=== PATIENT | female | born 1950 | race Hispanic/Latino ===

== ENCOUNTER 2018-01-13 18:14 | Emergency (ER) | payer OTHER ==
[~2018-01-13] VITALS: Ht 165.1 cm; Wt 92.5 kg
[2018-01-13] MEDS ORDERED: ACTOS45 MG PO (19:20)
[2018-01-13] MEDS ORDERED: GLIMEPIRIDE2 MG PO (19:24)
[2018-01-13] MEDS ORDERED: DYAZIDE 37.5-21 EACH (19:24)
[2018-01-13] MEDS ORDERED: LEVOTHYROXINE112 MCG PO (19:24)
[2018-01-13] MEDS ORDERED: LABETALOL HCL200 MG PO (19:28)
[2018-01-13] MEDS ORDERED: CLONIDINE HCL0.2 MG (19:28)
[2018-01-13] MEDS ORDERED: PRAVASTATIN SOD40 MG (19:28)
[2018-01-13] MEDS ORDERED: LISINOPRIL10 MG PO (19:28)
[2018-01-13] MEDS ORDERED: CLONIDINE HCL 0.1 MG TAB PO ONE (19:45)
[2018-01-13] MEDS ORDERED: KETOROLAC TROMETHAMINE 30 MG/ML VIAL IM STA (20:37)
[2018-01-13] MEDS ORDERED: CLONIDINE HCL0.1 MG PO (21:49)
[2018-01-13] MEDS ORDERED: TYLENOL WITH C1 EACH PO (21:49)
[2018-01-13 22:53] VITALS: BP 126/90
== END 2018-01-13 22:05 | disposition home or self-care (01) ==
LOC: FSED 18:14
DX: G44.219 Episodic tension-type headache, not intractable (principal); I10 Essential (primary) hypertension
CPT/HCPCS: 80053; 81003; 85025; 99283; J1885

== ENCOUNTER 2018-12-08 16:58 | Inpatient (IN) | payer OTHER ==
[~2018-12-08] VITALS: Ht 165.1 cm; Wt 90.0 kg
[~2018-12-08 16:58] MED LIST: ACTOS45 MG PO; CLONIDINE HCL0.1 MG PO; CLONIDINE HCL0.2 MG; DYAZIDE 37.5-21 EACH; GLIMEPIRIDE2 MG PO; LABETALOL HCL200 MG PO; LEVOTHYROXINE112 MCG PO; LISINOPRIL10 MG PO; PRAVASTATIN SOD40 MG; TYLENOL WITH C1 EACH PO
--- OUTSIDE RECORDS SUMMARY | 2018-12-08 17:03 | XMS REPORT | Clinical Summary ---
Author Author YOSELIN [facility] Organization [facility] Address Unknown Phone Unavailable Care Team Providers Care Director Drug Name Role Phone Sharpless PCP Allergies No Known Allergies Medications End Date Status Medication Sig Dispensed Refills Start Date Active sucralfate (CARAFATE) 1 Take 1 g by 0 gram tablet mouth 4 (four) times daily. Active pravastatin (PRAVACHOL) Take 40 mg by 0 40 MG tablet mouth daily. Active omeprazole (PRILOSEC) 40 Take 40 mg by 0 MG capsule mouth 2 (two) times daily . Active aspirin 81 MG EC tablet Take 81 mg by 0 mouth daily. Active metFORMIN (GLUCOPHAGE) Take 850 mg 0 850 MG tablet by mouth 2 (two) times daily with breakfast and dinner. Active verapamil (CALAN-SR) 240 Take 240 mg 0 MG CR tablet by mouth 2 (two) times daily . Active valsartan-hydrochlorothia Take 1 tablet 0 zide (DIOVAN-HCT) 320-25 by mouth mg per tablet daily. Active levothyroxine (SYNTHROID, Take 112 mcg 0 LEVOTHROID) 112 MCG by mouth tablet Every morning on an empty stomach. Active glimepiride (AMARYL) 4 MG Take 4 mg by 0 tablet mouth every morning before breakfast. Active pioglitazone (ACTOS) 45 Take 45 mg by 0 MG tablet mouth daily. Active Al hyd-Mg tr-alg ac-sod Take 1 tablet 0 bicarb (GENATON 80-20) by mouth 3 80-20 mg chewable tablet (three) times daily as needed for Heartburn. Active sdhogwrd-bzgj-fgw-folic Take 1 tablet 0 acid by mouth (LFKYDXBYJKYU-YJAI-WQSOZS daily . LS-FOLIC ACID) 3,500-18-0.4 unit-mg-mg Chew Active Problems Problem Noted Date Vertigo 05/13/2016 Family History Medical History Relation Name Comments Cancer Father Diabetes Mother Hyperlipidemia Mother Hypertension Mother Relation Name Status Comments Father Mother Social History Date Tobacco Use Types Packs/Day Years Used Never Smoker Alcohol Use Drinks/Week oz/Week Comments No Sex Assigned at Date Recorded Not on file Industry Job Start Date Occupation Not on file Not on file Not on file Travel End Travel History Travel Start No recent travel history available. Last Filed Vital Signs Not on file Plan of Treatment Not on file Results Not on fileafter 12/07/2017 Insurance Payer Benefit Subscriber ID Type Phone Address Plan / Group [employer] [facility] [facility]
[2018-12-08 18:42] LABS: BASOPHILS % 0.2 % (0.0-1.0); HEMATOCRIT 27.3 % (34.2-44.1); HEMOGLOBIN 9.3 g/dL (12.0-16.0); LYMPHOCYTES # (AUTO) 0.8 (1.0-3.2); LYMPHOCYTES % 4.5 % (18.0-39.1); MEAN CORPUSCULAR HEMOGLOBIN 27.2 pg (28-32); MEAN CORPUSCULAR HGB CONC 34.1 g/dL (31-35); MEAN CORPUSCULAR VOLUME 79.8 fL (81-99); MONOCYTES # (AUTO) 0.9 (0.2-0.8); NEUTROPHILS # (AUTO) 15.3 (2.1-6.9); NEUTROPHILS % 89.7 % (38.7-80.0); PLATELET COUNT 275 x10e3/uL (140-360); RED BLOOD COUNT 3.42 x10e6/uL (3.6-5.1); RED CELL DISTRIBUTION WIDTH 17.7 % (11.7-14.4)
[2018-12-08 18:51] LABS: INR 1.03
[2018-12-08 18:52] LABS: PARTIAL THROMBOPLASTIN TIME 36.6 seconds (23.8-35.5)
[2018-12-08] MEDS ORDERED: OMEPRAZOLE40 MG PO (18:52)
[2018-12-08] MEDS ORDERED: FLECTOR1 EACH PO (18:52)
[2018-12-08] MEDS ORDERED: LEVOTHYROXINE112 MCG PO (18:52)
[2018-12-08] MEDS ORDERED: SYMBICORT 80-10.2 GM INH (18:52)
[2018-12-08] MEDS ORDERED: METFORMIN HCL850 MG PO (18:52)
[2018-12-08] MEDS ORDERED: HYDROCHLOROTH12.5 M1 PO (18:52)
[2018-12-08] MEDS ORDERED: ASPIR 8181 MG PO (18:52)
[2018-12-08] MEDS ORDERED: LOSARTAN POTAS100 MG PO (18:52)
[2018-12-08] MEDS ORDERED: PRAVASTATIN SOD40 MG PO (18:52)
[2018-12-08] MEDS ORDERED: CORICIDIN COLD1 EACH (18:52)
[2018-12-08] MEDS ORDERED: MAGNESIUM OXID400 MG PO (18:52)
[2018-12-08] MEDS ORDERED: FERROUS SULFAT325 M1 PO (18:52)
[2018-12-08] MEDS ORDERED: VITAMIN B12-FO1 EACH PO (18:52)
[2018-12-08] MEDS ORDERED: PRESERVISION T1 EACH PO (18:52)
[2018-12-08] MEDS ORDERED: NIFEDIPINE ER30 M1 PO (18:52)
[2018-12-08] MEDS ORDERED: SODIUM CHLORIDE 0.9% 1000ML 1,000 ML IV STA (19:08)
[2018-12-08] MEDS ORDERED: AZITHROMYCIN 500MG/NS 250 ML 250 ML IV ONE (19:15)
[2018-12-08] MEDS ORDERED: VANCOMYCIN HCL 1GM/NS 250 ML BAG IV SCH (19:15)
[2018-12-08] MEDS ORDERED: LEVOFLOXACIN 750MG/D5W 150ML IV SCH (19:15)
[2018-12-08] MEDS ORDERED: ACETAMINOPHEN 325 MG TAB PO ONE (19:15)
[2018-12-08 19:23] LABS: ALBUMIN 3.5 g/dL (3.5-5.0); ALBUMIN/GLOBULIN RATIO 0.8 (0.8-2.0); ANION GAP 17.6 mmol/L (8-16); CALCIUM 9.5 mg/dL (8.4-10.2); CREATININE, SERUM 1.14 mg/dL (0.57-1.11); POTASSIUM 3.6 mmol/L (3.5-5.1)
[2018-12-08 19:31] LABS: CREATINE KINASE MB 2.6 ng/mL (0-5.0)
[2018-12-08] MEDS ORDERED: AZITHROMYCIN250 MG PO (19:35)
--- NOTE | 2018-12-08 19:36 | Diagnostic Imaging Report ---
EXAMINATION: CHEST SINGLE (PORTABLE) INDICATION: Cough. COMPARISON: None FINDINGS: TUBES and LINES: None. LUNGS: There is mild prominence of the central pulmonary vasculature, consistent with pulmonary venous congestion. Bilateral central pulmonary edema is also observed. PLEURA: No pleural effusion or pneumothorax. HEART AND MEDIASTINUM: Cardiac size is moderately enlarged. BONES AND SOFT TISSUES: No acute osseous lesion. Soft tissues are unremarkable. UPPER ABDOMEN: No free air under the diaphragm. IMPRESSION: Bilateral central pulmonary edema. Signed by: Dr. Gertrude Ahumada M.D. on 12/08/2018 7:33 PM
[2018-12-08] MEDS ORDERED: VANCOMYCIN 1GM/NS 250 ML 250 ML IV SCH (19:45)
[2018-12-08] MEDS: CEFTRIAXONE SOD 1 GM/NS 50 ML 50 ML IV ONE ×2 (19:45→19:51)
[2018-12-08] MEDS ORDERED: LEVOFLOXACIN 750MG/D5W 150ML 150 ML IV SCH (19:45)
[2018-12-08] MEDS: CEFEPIME 2 GM/NS 0.9% 100 ML 100 ML IV SCH (19:54)
--- OUTSIDE RECORDS SUMMARY | 2018-12-08 20:35 | XMS REPORT ---
[facility] Address Unknown Phone Unavailable Care Team Providers Care Presentation Designer Name Role Phone ZO JUAREZ Unavailable Unavailable Problems This patient has no known problems. Allergies, Adverse Reactions, Alerts This patient has no known allergies or adverse reactions. Medications This patient has no known medications. Results Test Description Test Time Test Comments Text Results Atomic Results Result Comments CHEST SINGLE (PORTABLE) 2018-12-08 19:32:00 [place] [address] Patient Name: PHI CORONADO MR #: [id number] : 1950 Age/Sex: 68/F Req #: [id number] Adm Physician: Ordered by: ZO JUAREZ MD, MD Report #: [id number] Location: ER Room/Bed: Procedure: [id number] DX/CHEST SINGLE (PORTABLE) Exam Date: 12/08/18 Exam Time: 1900 REPORT STATUS: Signed EXAMINATION: CHEST SINGLE (PORTABLE) IN DICATION: Cough. COMPARISON: None FINDINGS: TUBES and LINES: None. LUNGS: There is mild prominence of the central pulmonary vasculature, consistent with pulmonary venous congestion. Bilateral central pulmonary edema is also observed. PLEURA: No pleural effusion or pneumothorax. HEART AND MEDIASTINUM: Cardiac size is moderately enlarged. BONES AND SOFT TISSUES: No acute osseous lesion. Soft tissues are unremarkable. UPPER ABDOMEN: No free air under the diaphragm. IMPRESSION: Bilateral central pulmonary edema. Signed by: Dr. Gertrude Caldrea M.D. on 12/08/2018 7:33 PM Dictated By: KIARA CALDERA MD, MD 32 Transcribed By: WINDY on 12/08/181932 COPY TO: ZO JUAREZ
--- OUTSIDE RECORDS SUMMARY | 2018-12-08 20:35 | XMS REPORT | Clinical Summary ---
Author Author YOSELIN [facility] Organization [facility] Address Unknown Phone Unavailable Care Team Providers Care Commercial Sales Director Name Role Phone Sharpless PCP Allergies No [...] times daily as needed for Heartburn. Active ybgsvwql-awcs-hkb-folic Take 1 tablet 0 acid by mouth (SXVCKCQFXRMC-LGXO-OMBFPO daily . LS-FOLIC ACID) 3,500-18-0.4 unit-mg-mg Chew [...] Address Plan / Group [employer] [facility] [facility]
[2018-12-08] MEDS ORDERED: FUROSEMIDE INJ 10 MG/ML 4 ML VIAL IV ONE (21:45)
[2018-12-08] MEDS ORDERED: CEFEPIME HCL 2 GM/SOD CHL 0.9% 100 ML BAG IV SCH (22:00)
[2018-12-08] MEDS ORDERED: SODIUM CHLORIDE 0.9% 50ML 50 ML ONE ×2 (22:07→22:08)
[2018-12-08] MEDS ORDERED: IOPAMIDOL 370 MG/ML 200 ML INFUS..BTL INJ ONE (22:08)
[2018-12-08] MEDS ORDERED: SODIUM CHLORIDE 0.9% 250ML 250 ML ONE (22:16)
[2018-12-08 22:28] LABS: BILIRUBIN,URINE NEGATIVE (NEGATIVE); CLARITY,URINE CLEAR (CLEAR); COLOR,URINE YELLOW (YELLOW); KETONES,URINE NEGATIVE (NEGATIVE); LEUKOCYTE ESTERASE ,URINE NEGATIVE (NEGATIVE); NITRITE,URINE NEGATIVE (NEGATIVE); PROTEIN,URINE DIPSTICK NEGATIVE (NEGATIVE); URINE UROBILINOGEN 0.2 mg/dL (0.2 - 1)
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
[2018-12-08 22:43] VITALS: BP 165/79
[2018-12-08 22:45] LABS: BACTERIA,URINE MODERATE /HPF; EPITHELIAL CELLS,URINE FEW /LPF; WBC,URINE (MAN) 0-5 /HPF (0-5)
[2018-12-08 22:51] VITALS: BP 165/79
[2018-12-08 22:54] VITALS: BP 165/79
[2018-12-09] VITALS (7 sets, daily range): BP systolic 123–151; BP diastolic 58–66
[2018-12-09] MEDS: CEFEPIME 2 GM/NS 0.9% 100 ML 100 ML IV SCH (05:32)
[2018-12-09 06:12] LABS: CREATINE KINASE MB 1.9 ng/mL (0-5.0)
--- NOTE | 2018-12-09 07:45 | NUR ---
Patient alert and responsive, no resp distress, on continuous oxygen NC at 3 L, call light within reach, daughter in room with patient, treatment for PNA and will continue to monitor.
--- NOTE | 2018-12-09 09:26 | NUR ---
LS with faint scattered wheezing, desats without O2 on RA, will monitor.
--- NOTE | 2018-12-09 13:05 | NUR ---
Patient O2Sats 95% 3L and OOB and ambulated on RA and desatted to 84%. Attending notified and orders in place.
[2018-12-09] MEDS: LEVOTHYROXINE SODIUM 112 MCG TAB PO SCH (13:30)
[2018-12-09] MEDS: PIPER-TAZ 3.375 GM 50 ML IV SCH ×2 (13:37→21:09)
--- NOTE | 2018-12-09 13:40 | NUR ---
Rounds by attending and saw patient . Consult to pulmonology and has been called and waiting for call back.
[2018-12-09] MEDS ORDERED: AZITHROMYCIN 500MG/NS 250 ML 250 ML IV SCH (15:00)
[2018-12-09] MEDS: INSULIN LISPRO 100 UNIT/1 ML 3ML VIAL SQ SCH ×2 (16:30→20:59)
[2018-12-09] MEDS ORDERED: LINEZOLID 600 MG TAB PO SCH (17:00)
--- NOTE | 2018-12-09 17:14 | NUR ---
Patient alert and responsive, consult to carpenter general and seeing patient at this time. No resp distress, reason for consult is calcified arteries.
[2018-12-09] MEDS: LACTOBACILLUS ACIDOPHILUS CAPSULE PO SCH (17:17)
[2018-12-09] MEDS: CLONIDINE HCL 0.2 MG TAB PO SCH (17:17)
[2018-12-09] MEDS: METFORMIN HCL 850 MG TAB PO SCH (17:17)
--- NOTE | 2018-12-09 17:18 | Diagnostic Imaging Report ---
A single frontal view of the chest. HISTORY: Edema versus pneumonia, status post Lasix COMPARISON: Chest radiograph December 08, 2017. DISCUSSION: Portable technique, limits sensitivity of the exam. Overlying monitoring leads. Tubes/Lines: None Lungs and pleura: Diffuse bilateral patchy interstitial and airspace opacities, more confluence at the mid to lower lungs. No definite pleural effusion or pneumothorax is identified. Heart and mediastinum: The cardiac silhouette appears within normal limits. Bones and soft tissues: Appear unremarkable, given this limited exam. IMPRESSION: Patchy interstitial and airspace opacities in the setting of a normal cardiac size favors multifocal pneumonia. Signed by: Dr. Adal Mcghee D.O., M.M.M. on 12/09/2018 5:15 PM
[2018-12-09] MEDS ORDERED: FUROSEMIDE INJ 10 MG/ML 4 ML VIAL IV NR (17:45)
--- NOTE | 2018-12-09 18:50 | Consultation ---
DATE OF CONSULTATION: Pulmonary Critical Care Consultation CHIEF COMPLAINT: Cough, hemoptysis, and dyspnea. HISTORY OF PRESENT ILLNESS: The patient is a 68-year-old woman. She has a history of diabetes and hypertension. Over the past several weeks, she has had some cough and congestion. She took Zithromax about 3 or 4 weeks ago to her PCP and felt better temporarily, but began having more dyspnea the last couple of days. She noticed cough and hemoptysis that prompted her to go to the emergency department yesterday. Upon arrival to the Emergency Department, she had bilateral infiltrates suggestive of possible pneumonia. She received diuretics as well as antibiotics and reports some improvement. She is not having hemoptysis now. PAST MEDICAL HISTORY: 1. Hypothyroidism. 2. Hypertension. 3. Diabetes. PAST SURGICAL HISTORY: Tubal ligation. FAMILY HISTORY: Diabetes, hypertension, and heart disease. SOCIAL HISTORY: The patient has never been a smoker, although her and her son-in-law have smoked. They usually smoke outside the house. She is not a drinker. ALLERGIES: SHE HAS NO KNOWN DRUG ALLERGIES. REVIEW OF SYSTEMS: The patient did have fevers here, but is not experiencing any fever or chills at home. She does not complain of any headache or neck pain. She did have some dizziness. She had no chest pain. She did have some cough. She noted some congestion and some hemoptysis. She does not have any abdominal pain, nausea, vomiting. She had leg edema previously, but has since resolved. PHYSICAL EXAMINATION: VITAL SIGNS: The patient is afebrile. The blood pressure is 128/60 and saturation is 94% on room air, 4 L. HEENT: Shows no facial swelling or erythema. LYMPHATIC: Shows no submandibular, cervical, or supraclavicular adenopathy. CARDIAC: Reveals regular rate and rhythm with normal S1 and S2. LUNGS: Auscultation of lungs shows clear breath sounds bilaterally. There is no wheezing. ABDOMEN: Soft, nontender. There is no rebound or guarding. EXTREMITIES: Extremities show no leg edema or calf tenderness. There is no cyanosis or clubbing. SKIN: Shows no rashes. NEUROLOGIC: Shows no focal abnormalities. LABORATORY DATA: Sodium is 128 and the CO2 is 20. Creatinine is 1.14. White blood cell count is 17 and hemoglobin is 9.3. The platelet count is 275. RADIOGRAPHIC DATA: Chest CT shows bilateral ground-glass opacities concerning for multifocal pneumonia. There is also some mild cardiomegalia and calcified coronary arteries. ECHOCARDIOGRAM: The echocardiogram shows mildly reduced ejection fraction of 45% to 50%. There is also moderate mitral regurgitation as well as elevated right ventricular systolic pressure of 45. IMPRESSION: 1. Community-acquired pneumonia with sepsis, present on admission. 2. Acute systolic congestive heart failure. 3. Hemoptysis. 4. Hypothyroidism. 5. Hypertension. PLAN: 1. Continue current antibiotics. 2. Repeat chest x-ray tomorrow. 3. Continue oxygen and wean as tolerated. 4. Discuss additional Cardiology evaluation with Dr. Summers. 5. Out of bed as tolerated. 6. Discussed with the patient, family, and Dr. Summers. MD TAISHA Morocho/INDERJIT /[id number]
[2018-12-09] MEDS: PRAVASTATIN 20 MG TAB PO SCH (21:09)
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
[2018-12-10] VITALS (10 sets, daily range): BP systolic 112–142; BP diastolic 56–82
[2018-12-10 05:28] LABS: BASOPHILS % 0.4 % (0.0-1.0); EOSINOPHILS # (AUTO) 0.1 (0.0-0.4); EOSINOPHILS % 0.7 % (0.0-6.0); HEMATOCRIT 25.4 % (34.2-44.1); HEMOGLOBIN 8.5 g/dL (12.0-16.0); LYMPHOCYTES % 12.3 % (18.0-39.1); MEAN CORPUSCULAR HEMOGLOBIN 26.6 pg (28-32); MEAN CORPUSCULAR HGB CONC 33.5 g/dL (31-35); MEAN CORPUSCULAR VOLUME 79.6 fL (81-99); MONOCYTES # (AUTO) 0.7 (0.2-0.8); MONOCYTES % 8.5 % (4.4-11.3); NEUTROPHILS # (AUTO) 6.6 (2.1-6.9); NEUTROPHILS % 77.7 % (38.7-80.0); PLATELET COUNT 283 x10e3/uL (140-360); RED BLOOD COUNT 3.19 x10e6/uL (3.6-5.1); RED CELL DISTRIBUTION WIDTH 17.5 % (11.7-14.4)
[2018-12-10 05:50] LABS: ANION GAP 15.2 mmol/L (8-16); CALCIUM 9.2 mg/dL (8.4-10.2); CREATININE, SERUM 1.24 mg/dL (0.57-1.11); POTASSIUM 3.2 mmol/L (3.5-5.1)
[2018-12-10 05:55] LABS: ALBUMIN 2.9 g/dL (3.5-5.0); ALBUMIN/GLOBULIN RATIO 0.7 (0.8-2.0); ANION GAP 14.1 mmol/L (8-16); CALCIUM 9.2 mg/dL (8.4-10.2); CREATININE, SERUM 1.25 mg/dL (0.57-1.11); POTASSIUM 3.1 mmol/L (3.5-5.1)
[2018-12-10] MEDS: PIPER-TAZ 3.375 GM 50 ML IV SCH ×3 (05:58→22:50)
[2018-12-10] MEDS: LEVOTHYROXINE SODIUM 112 MCG TAB PO SCH (05:58)
[2018-12-10 06:11] LABS: THYROID STIMULATING HORMONE 1.036 uIU/mL (0.350-4.940)
--- NOTE | 2018-12-10 06:33 | Diagnostic Imaging Report ---
EXAMINATION: CHEST 2 VIEWS INDICATION: Pneumonia COMPARISON: Chest CT 12/08/2018 FINDINGS: PA and lateral views TUBES and LINES: None. LUNGS: Hazy airspace opacities in the mid to lower lungs bilaterally. PLEURA: No pleural effusion or pneumothorax. HEART AND MEDIASTINUM: Cardiac size is borderline enlarged. BONES AND SOFT TISSUES: No acute osseous lesion. Rotator cuff calcific tendinopathy bilaterally. UPPER ABDOMEN: No free air under the diaphragm. IMPRESSION: Hazy airspace opacities in the mid to lower lungs are likely pneumonia, less likely edema. Borderline cardiomegaly. Signed by: Jesús Slater DO on 12/10/2018 6:30 AM
[2018-12-10] MEDS: INSULIN LISPRO 100 UNIT/1 ML 3ML VIAL SQ SCH ×4 (07:58→21:00)
[2018-12-10] MEDS ORDERED: PIOGLITAZONE HCL 15 MG TAB PO SCH (08:00)
[2018-12-10] MEDS: METFORMIN HCL 850 MG TAB PO SCH (08:07)
[2018-12-10] MEDS: LACTOBACILLUS ACIDOPHILUS CAPSULE PO SCH ×2 (08:07→17:21)
[2018-12-10] MEDS: CLONIDINE HCL 0.2 MG TAB PO SCH ×2 (08:07→17:21)
[2018-12-10] MEDS ORDERED: PIOGLITAZONE HCL 45 MG TAB PO SCH (09:00)
--- NOTE | 2018-12-10 09:20 | NUR ---
RECEIVED PT FROM OBS. PT IS AAOX4. PT FAMILY AT BEDSIDE. BED IS AT THE LOWEST POSITION AND LOCKED. CALL LIGHT WITH IN EASY REACH. INSTRUCTED PT TO CALL FOR ANY NEEDS. PT DENIES NEEDS AT THIS TIME.
--- NOTE | 2018-12-10 11:44 | NUR ---
PT POTASSIUM LEVEL IS LOW. PAGED DR. AYALA. NEW ORDER RECEIVED.
[2018-12-10] MEDS ORDERED: POTASSIUM CHLORIDE 20 MEQ TAB CR PO ONE (12:00)
[2018-12-10] MEDS ORDERED: IRON SUCROSE 100 MG in SODIUM CHLORIDE 0.9% 100 ML 100 ML IV SCH ×2 (13:45→19:00)
[2018-12-10] MEDS ORDERED: LACTULOSE SYRUP 20 GM/30 ML UDC PO ONE (14:00)
[2018-12-10] MEDS ORDERED: SODIUM CHLORIDE 0.9% 250ML 250 ML ONE (14:09)
--- NOTE | 2018-12-10 16:04 | Progress Note ---
DATE: 12/10/2018 Pulmonary Progress Note SUBJECTIVE: The patient has no new complaints. She feels better. Her oxygen is down to 2 L. PHYSICAL EXAMINATION: VITAL SIGNS: The patient is afebrile. The blood pressure is 142/68 and the saturation is 94% on 2 L. HEENT: Shows no facial swelling or erythema. CARDIAC: Reveals a regular rate and rhythm with a normal S1 and S2. There are no murmurs or rubs. LUNGS: Auscultation of lungs reveals clear breath sounds bilaterally. There is no wheezing. IMPRESSION: 1. Community-acquired pneumonia with sepsis, present on admission. 2. Hypothyroidism. 3. Hypertension. PLAN: 1. Continue current antibiotics. 2. Continue to wean oxygen. 3. Probable discharge tomorrow. Aramis Rodrigez MD [facility]/MODL /[id number]
[2018-12-10] MEDS: METFORMIN HCL 500 MG TAB PO SCH (17:21)
--- NOTE | 2018-12-10 19:00 | NUR ---
BEDSIDE SHIFT REPORT GIVEN TO THE PLANNING MANAGEMENT IT SPECIALIST RN. PT FAMILY AT BEDSIDE. PT DENIED FURTHER NEEDS.
[2018-12-10] MEDS ORDERED: AZITHROMYCIN 500MG/NS 250 ML 250 ML IV SCH (20:00)
[2018-12-10] MEDS: PRAVASTATIN 20 MG TAB PO SCH (21:02)
[2018-12-11 01:55] VITALS: BP 121/59
[2018-12-11 05:47] VITALS: BP 133/66
[2018-12-11 05:48] LABS: BASOPHILS % 0.7 % (0.0-1.0); EOSINOPHILS # (AUTO) 0.4 (0.0-0.4); EOSINOPHILS % 6.2 % (0.0-6.0); HEMATOCRIT 25.6 % (34.2-44.1); HEMOGLOBIN 8.4 g/dL (12.0-16.0); LYMPHOCYTES # (AUTO) 1.2 (1.0-3.2); LYMPHOCYTES % 19.7 % (18.0-39.1); MEAN CORPUSCULAR HEMOGLOBIN 26.8 pg (28-32); MEAN CORPUSCULAR HGB CONC 32.8 g/dL (31-35); MEAN CORPUSCULAR VOLUME 81.5 fL (81-99); MONOCYTES # (AUTO) 0.7 (0.2-0.8); MONOCYTES % 12.5 % (4.4-11.3); NEUTROPHILS # (AUTO) 3.6 (2.1-6.9); NEUTROPHILS % 60.2 % (38.7-80.0); PLATELET COUNT 280 x10e3/uL (140-360); RED BLOOD COUNT 3.14 x10e6/uL (3.6-5.1); RED CELL DISTRIBUTION WIDTH 17.8 % (11.7-14.4)
[2018-12-11 06:26] LABS: ALBUMIN 2.7 g/dL (3.5-5.0); ALBUMIN/GLOBULIN RATIO 0.7 (0.8-2.0); ANION GAP 13.9 mmol/L (8-16); CALCIUM 8.8 mg/dL (8.4-10.2); CREATININE, SERUM 1.12 mg/dL (0.57-1.11); POTASSIUM 3.9 mmol/L (3.5-5.1)
[2018-12-11] MEDS: PIPER-TAZ 3.375 GM 50 ML IV SCH (06:40)
[2018-12-11] MEDS: LEVOTHYROXINE SODIUM 112 MCG TAB PO SCH (06:41)
[2018-12-11 07:26] VITALS: BP 142/67
[2018-12-11] MEDS: INSULIN LISPRO 100 UNIT/1 ML 3ML VIAL SQ SCH ×2 (07:30→12:15)
[2018-12-11] MEDS ORDERED: PIOGLITAZONE HCL 15 MG TAB PO SCH (08:00)
[2018-12-11] MEDS: LACTOBACILLUS ACIDOPHILUS CAPSULE PO SCH (09:01)
[2018-12-11] MEDS: METFORMIN HCL 500 MG TAB PO SCH (09:01)
[2018-12-11] MEDS: CLONIDINE HCL 0.2 MG TAB PO SCH (09:01)
[2018-12-11 09:04] VITALS: BP 142/67
--- NOTE | 2018-12-11 10:08 | Progress Note ---
DATE: SUBJECTIVE: The patient states she is improving. She is now off oxygen. PHYSICAL EXAMINATION: VITAL SIGNS: Stable. CARDIAC: Reveals regular rate and rhythm with normal S1 and S2. There are no murmurs or rubs. LUNGS: Auscultation of lungs reveals clear breath sounds bilaterally. IMPRESSION: 1. Community-acquired pneumonia with sepsis, present on admission. 2. Hypothyroidism. 3. Hypertension. PLAN: 1. Change to p.o. antibiotics and complete a 10-day course. 2. Okay for discharge. 3. Follow up with Cardiology as outpatient. MD TAISHA Morocho/INDERJIT /[id number]
[2018-12-11 12:20] VITALS: BP 157/70
--- NOTE | 2018-12-11 13:00 | NUR ---
Per Dr. Summers, no home 02 eval is needed
--- NOTE | 2018-12-11 14:45 | NUR ---
Discharge instructions and prescription given to the patient , she verbalized understanding
--- NOTE | 2018-12-11 14:56 | NUR ---
CM SPOKE TO PATIENT AT BEDSIDE REGARDING DISCHARGE PLAN. PATIENT EXPLAINED THAT SHE DOES NOT QUALIFY FOR HOME OXYGEN BASED ON HOME OXYGEN EVALUATION. PATIENT UNDERSTANDS AND HAS NO MORE QUESTIONS AT THIS TIME. PATIENT DISCHARGING HOME WITH NO NEEDS.
--- NOTE | 2018-12-11 18:56 | Discharge Summary ---
PRIMARY CARE DOCTOR: Dr. Mandy Gates FINAL DIAGNOSIS: Bilateral multifocal pneumonia. SECONDARY DIAGNOSES: 1. Iron deficiency anemia. 2. Constipation, resolved. 3. Hyponatremia, resolved. 4. Diabetes. 5. Hypertension. CONSULTANTS: 1. Dr. Quiroga, Cardiology. 2. Dr. Rodrigez, Pulmonology. PROCEDURES/STUDIES PERFORMED: 1. Chest CT. 2. Echocardiogram. HISTORY: Per H and P. HOSPITAL COURSE: The patient was admitted with bilateral pneumonia. She responded to Zosyn and azithromycin well. Her hemoptysis and hypoxia resolved. Echocardiogram was benign. The patient received iron infusion for her iron deficiency anemia. She has a scheduled outpatient colonoscopy in the near future. The patient was seen and examined today. It took 32 minutes total to discharge this patient today. The patient will follow up with her primary care doctor in a week. Updated her daughter at the bedside. I updated her primary care doctor as well. CONDITION ON DISCHARGE: Improved. DISCHARGE MEDICATIONS: Please see medication reconciliation form including five more days of oral Levaquin to complete a one week course. Saraching MD LO Harris/INDERJIT /[id number] cc: [facility] Dr. Mandy Gates
== END 2018-12-11 14:49 | disposition home or self-care (01) | DRG 871 ==
LOC: ER 16:58 → ERHOLD 20:31 → IMCU 22:20 → INTOOBSV 12-09 13:02 → OBSVTOIN 12-09 13:02 → MED/SURG2 12-10 09:25
PROVIDERS: ADMIT Internal Medicine; ATTEND Internal Medicine
DX: A41.9 Sepsis, unspecified organism (principal); J18.9 Pneumonia, unspecified organism; I50.21 Acute systolic (congestive) heart failure; J80 Acute respiratory distress syndrome; E87.1 Hypo-osmolality and hyponatremia; D50.9 Iron deficiency anemia, unspecified; K59.00 Constipation, unspecified; I11.0 Hypertensive heart disease with heart failure; E03.9 Hypothyroidism, unspecified; E87.6 Hypokalemia; E11.65 Type 2 diabetes mellitus with hyperglycemia; E78.00 Pure hypercholesterolemia, unspecified; R60.0 Localized edema; I25.10 Atherosclerotic heart disease of native coronary artery without angina pectoris
CPT/HCPCS: 36415; 71045; 71046; 71260; 80048; 80053; 81001; 82550; 82553; 82948; 83540; 83880; 84443; 84466; 84484; 85025; 85379; 85610; 85730; 87040; 87070; 87205; 93005; 93306; 96374; 99284; G0378; J0456; J0696; J1756; J1940; J2543; J3370; J7030; J7050; Q9967

== ENCOUNTER 2019-01-23 18:21 | Inpatient (IN) | payer OTHER ==
[~2019-01-23] VITALS: Ht 157.5 cm; Wt 83.0 kg
[~2019-01-23 18:21] MED LIST changes: +ASPIR 8181 MG PO; +AZITHROMYCIN250 MG PO; +CORICIDIN COLD1 EACH; +ETOMIDATE 40 MG/ 20ML VIAL IV ONE; +FERROUS SULFAT325 M1 PO; +FLECTOR1 EACH PO; +HYDROCHLOROTH12.5 M1 PO; +LOSARTAN POTAS100 MG PO; +MAGNESIUM OXID400 MG PO; +METFORMIN HCL850 MG PO; +NIFEDIPINE ER30 M1 PO; +OMEPRAZOLE40 MG PO; +PRAVASTATIN SOD40 MG PO; +PRESERVISION T1 EACH PO; +SUCCINYLCHOLINE CHLORIDE 20 MG/ML 10ML VIAL ONE; +SYMBICORT 80-10.2 GM INH; +VITAMIN B12-FO1 EACH PO
--- OUTSIDE RECORDS SUMMARY | 2019-01-23 18:24 | XMS REPORT | Clinical Summary ---
Author Author YOSELIN [facility] Organization [facility] Address Unknown Phone Unavailable Care Team Providers Care Mission Planner Name Role Phone Sharpless PCP Allergies No [...] times daily as needed for Heartburn. Active tuxefvyq-jfua-zlp-folic Take 1 tablet 0 acid by mouth (DLCGWNZGKASQ-TYTR-BAHMYB daily . LS-FOLIC ACID) 3,500-18-0.4 unit-mg-mg Chew [...] Not on file Results Not on fileafter 01/22/2018 Insurance Payer Benefit Subscriber ID Type Phone Address Plan / Group [employer] [facility]
[2019-01-23 18:59] LABS: BASOPHILS % 0.2 % (0.0-1.0); EOSINOPHILS % 0.2 % (0.0-6.0); HEMATOCRIT 26.9 % (34.2-44.1); LYMPHOCYTES # (AUTO) 0.7 (1.0-3.2); LYMPHOCYTES % 5.4 % (18.0-39.1); MEAN CORPUSCULAR HEMOGLOBIN 27.3 pg (28-32); MEAN CORPUSCULAR HGB CONC 33.5 g/dL (31-35); MEAN CORPUSCULAR VOLUME 81.5 fL (81-99); MONOCYTES # (AUTO) 0.7 (0.2-0.8); MONOCYTES % 4.9 % (4.4-11.3); NEUTROPHILS # (AUTO) 11.7 (2.1-6.9); NEUTROPHILS % 88.8 % (38.7-80.0); PLATELET COUNT 215 x10e3/uL (140-360); RED CELL DISTRIBUTION WIDTH 20.5 % (11.7-14.4)
[2019-01-23 19:06] LABS: INR 1.18; PROTHROMBIN TIME 15.6 seconds (11.9-14.5)
[2019-01-23 19:07] LABS: PARTIAL THROMBOPLASTIN TIME 37.5 seconds (23.8-35.5)
[2019-01-23 19:15] LABS: ALBUMIN 3.3 g/dL (3.5-5.0); ALBUMIN/GLOBULIN RATIO 0.9 (0.8-2.0); ANION GAP 16.6 mmol/L (8-16); CALCIUM 9.3 mg/dL (8.4-10.2); CREATININE, SERUM 1.24 mg/dL (0.57-1.11); POTASSIUM 3.6 mmol/L (3.5-5.1)
[2019-01-23] MEDS ORDERED: PIPER-TAZ 3.375 GM 50 ML IV STA (19:21)
[2019-01-23] MEDS ORDERED: SODIUM CHLORIDE 0.9% 1000ML 1,000 ML IV SCH ×2 (19:30)
[2019-01-23] MEDS ORDERED: LEVOFLOXACIN 750MG/D5W 150ML 150 ML IV ONE (19:30)
[2019-01-23] MEDS ORDERED: SODIUM CHLORIDE 0.9% 1000ML 1,000 ML IV ONE (19:30)
[2019-01-23] MEDS ORDERED: ONDANSETRON HCL INJ 2MG/ML 2ML 2 MG/ML VIAL IV PRN (19:30)
[2019-01-23 19:39] LABS: ABG PH 7.42 (7.31-7.41)
[2019-01-23 19:40] LABS: ABG HCO3 17 mmol/L (23-28); ABG PCO2 27 mmHg (41-51); ABG PO2 59 mmHg (80-105)
[2019-01-23 19:46] LABS: CREATINE KINASE MB 2.1 ng/mL (0-5.0)
[2019-01-23] MEDS ORDERED: SODIUM CHLORIDE 0.9% 50ML 50 ML ONE (20:59)
[2019-01-23] MEDS ORDERED: INSULIN LISPRO 100 UNIT/1 ML 3ML VIAL SQ SCH (21:00)
[2019-01-23] MEDS ORDERED: IOPAMIDOL 370 MG/ML 200 ML INFUS..BTL INJ ONE (21:00)
--- NOTE | 2019-01-23 21:13 | Diagnostic Imaging Report ---
EXAMINATION: CT of the chest with contrast, PE protocol. TECHNIQUE: Spiral CT images of the chest were performed from the lung apices through the level of the adrenal glands after the IV administration of 100 cc Isovue-370. Thin section reconstructions were obtained with special concentration on the pulmonary arteries. COMPARISON: Chest radiograph 12/10/2018 CLINICAL HISTORY:Hypoxia, concern for pulmonary embolus DISCUSSION: Vasculature: The main pulmonary artery, right and left pulmonary arteries, and their visualized lobar and segmental branches are patent, without filling defect. The pulmonary outflow tract is of normal caliber. No right ventricular dilatation or septal bowing. No ectasia or aneurysmal dilatation of the thoracic aorta. Atherosclerotic calcification of the aortic arch and chilkoot coronary arteries. Great vessel origins are of normal caliber and configuration. Lungs: Multifocal central-predominant consolidations with air bronchograms predominantly involving the left upper lobe and bilateral lower lobes, with relative sparing of the lingula and right middle lobe. Multiple air bronchograms with surrounding groundglass opacities. Smooth interlobular septal thickening is noted in the areas not involved by consolidation, along with intermittent foci of relative hyperlucency of the lung parenchyma. Airways: Trachea, mainstem bronchi, and central lobar and segmental bronchi are patent. Pleura: Small bilateral pleural effusions. Heart and mediastinum: There is mild 4 chamber cardiac enlargement. No pericardial effusion. No axillary, hilar, or mediastinal lymphadenopathy. Abdomen: Visualized portions of the liver, spleen, pancreas, and adrenal glands appear normal with the exception of a calcified granuloma in hepatic segment 4A great Bones and soft tissues: No osseous destructive lesions. Multilevel degenerative changes of the partially visualized lower cervical and thoracic spine. Bilateral cervical ribs with right-sided fusion with the adjacent first thoracic rib. Degenerative changes of the shoulder girdles. Thyroid gland and soft tissues are unremarkable. IMPRESSION: No pulmonary embolus to the level of the segmental branch pulmonary arteries. Multifocal consolidations with adjacent groundglass opacities and smooth interlobular septal thickening most compatible with alveolar pulmonary edema in the setting of cardiomegaly and associated pleural effusions. The differential diagnosis includes multifocal pneumonia in the appropriate clinical setting. Follow-up CT scan of the chest should be considered in 3 months to document resolution of findings after appropriate treatment. Atherosclerotic vascular disease. Signed by: Dr. Carlos Rapp M.D. on 01/23/2019 9:10 PM
--- OUTSIDE RECORDS SUMMARY | 2019-01-23 21:52 | XMS REPORT | Clinical Summary ---
Author Author YOSELIN [facility] Organization [facility] Address Unknown Phone Unavailable Care Team Providers Care Storage Battery Inspector And Tester Name Role Phone Sharpless PCP Allergies No [...] times daily as needed for Heartburn. Active qkszvddi-hbtx-rfa-folic Take 1 tablet 0 acid by mouth (VWZSAUWTMKCC-RFHX-OWFTUR daily . LS-FOLIC ACID) 3,500-18-0.4 unit-mg-mg Chew [...] Address Plan / Group [employer] [facility]
[2019-01-24] VITALS (22 sets, daily range): BP systolic 84–160; BP diastolic 53–91
[2019-01-24] MEDS ORDERED: DEXTROSE 50% SYRINGE 50 ML IV PRN (02:30)
[2019-01-24] MEDS ORDERED: PIPER-TAZ 3.375 GM 50 ML IV SCH ×2 (04:01)
[2019-01-24] MEDS ORDERED: ALPRAZOLAM 0.25 MG TAB PO ONE (05:45)
[2019-01-24] MEDS: INSULIN REGULAR, HUMAN 100 UNIT/1 ML 3ML VIAL SQ SCH ×3 (07:30→17:23)
[2019-01-24] MEDS ORDERED: PROPOFOL IV EMULSION 10MG/ML 100 ML ONE ×2 (07:56→12:26)
[2019-01-24] MEDS ORDERED: FUROSEMIDE INJ 10 MG/ML 4 ML VIAL IV ONE ×2 (08:30→08:45)
[2019-01-24] MEDS ORDERED: DEXMEDETOMIDINE HCL 200 MCG in SODIUM CHLORIDE 0.9% 50ML 48 ML IV PRN (08:30)
[2019-01-24 08:35] LABS: ABG HCO3 20 mmol/L (23-28); ABG PCO2 38 mmHg (41-51); ABG PH 7.33 (7.31-7.41); ABG PO2 52 mmHg (80-105)
[2019-01-24] MEDS ORDERED: DEXMEDETOMIDINE 200MCG/NS 50ML 100 ML IV ONE ×2 (09:01→12:25)
--- NOTE | 2019-01-24 09:12 | Diagnostic Imaging Report ---
Exam: Chest one view Comparison: December 10, 2018 Clinical history: Intubation Findings: The endotracheal tube overlies the trachea with its tip approximately 4 cm above the john. There is interval worsening in bilateral airway opacities with air bronchogram which may represent diffuse pneumonitis versus ARDS. There is no evidence of pneumothorax. The cardiac size appears enlarged. The regional osseous structures are unremarkable. Signed by: Dr. Awais Fletcher MD on 01/24/2019 9:09 AM
[2019-01-24] MEDS ORDERED: VANCOMYCIN 1GM/NS 250 ML 250 ML IV ONE (09:30)
[2019-01-24] MEDS ORDERED: SODIUM CHLORIDE 0.9% 1000ML 1,000 ML ONE (09:45)
[2019-01-24] MEDS ORDERED: POTASSIUM CHLORIDE 20MEQ/100ML 100 ML IV ONE (09:45)
[2019-01-24 09:49] LABS: ABG PCO2 35 mmHg (41-51); ABG PH 7.37 (7.31-7.41)
[2019-01-24 09:50] LABS: ABG HCO3 20 mmol/L (23-28); ABG PO2 75 mmHg (80-105)
[2019-01-24 10:44] LABS: BILIRUBIN,URINE NEGATIVE (NEGATIVE); CLARITY,URINE CLEAR (CLEAR); COLOR,URINE YELLOW (YELLOW); KETONES,URINE NEGATIVE (NEGATIVE); LEUKOCYTE ESTERASE ,URINE NEGATIVE (NEGATIVE); NITRITE,URINE NEGATIVE (NEGATIVE); PROTEIN,URINE DIPSTICK NEGATIVE (NEGATIVE); URINE UROBILINOGEN 0.2 mg/dL (0.2 - 1)
[2019-01-24 10:49] LABS: AMORPHOUS SEDIMENT,URINE FEW (FEW); BACTERIA,URINE MODERATE /HPF; EPITHELIAL CELLS,URINE MODERATE /LPF; WBC,URINE (MAN) 0-5 /HPF (0-5)
[2019-01-24] MEDS: PROPOFOL IV EMULSION 10MG/ML 100 ML IV SCH (12:28)
[2019-01-24] MEDS ORDERED: SODIUM CHLORIDE 0.9% 250ML 250 ML IV PRN (12:45)
[2019-01-24] MEDS: FUROSEMIDE INJ 10 MG/ML 4 ML VIAL IV SCH ×2 (13:41→22:44)
--- NOTE | 2019-01-24 15:31 | Consultation ---
DATE OF CONSULTATION: 01/24/2019 Pulmonary Medicine Consult CHIEF COMPLAINT: Respiratory failure. HISTORY OF PRESENT ILLNESS: Ms. Knight is a pleasant 68-year-old female with respiratory failure. Of note, the patient presented to [facility] in November 2018. The patient had multifocal pneumonitis and some elements of diffuse ground-glass underlying. The patient took diuretics as well as antibiotics and responded at that time. The patient had some improvement in that time and then afterwards, she was allowed to go outpatient followup. The patient had echocardiogram at that time with LVEF 45% to 50% and RVSP estimated at 45 mmHg. The patient had steady improvement. The patient presented once again to the hospital this time with shortness of breath on January 23, 2019. The patient has essential shortness of breath. The patient had a CT chest showing bilateral consolidative opacities spread out and underlying mild ground-glass opacities. The ground-glass opacities in general seemed better and some of the consolidative opacities are also better with a smaller area that is slightly worse in terms of consolidative nodular characteristics. The patient was admitted. She eventually started to get more short of breath. She was eventually intubated. Albumin was 3.3. BNP was 424. ABG 7.33/38/52. She is on ventilator and placed on very high FiO2 of 100% with high levels of PEEP. The patient was critically ill and I was consulted. High level of PEEP. I am consulted. PAST MEDICAL HISTORY: Hypothyroidism, hypertension, diabetes, tubal ligation, and pneumonia in November 2018. SOCIAL HISTORY: No smoking. No drinking. No drugs. FAMILY HISTORY: Noncontributory. MEDICATIONS: Medication list reviewed per the chart record. ALLERGIES: NO KNOWN DRUG ALLERGIES. REVIEW OF SYSTEMS: Cannot get, as she is intubated. PHYSICAL EXAMINATION: VITAL SIGNS: Currently afebrile, vital signs remain stable with low normal to low blood pressure. HEENT: Normocephalic and atraumatic. GENERAL: On ventilator, now better synchronous compared to the descriptions were earlier. NECK: Supple. Throat midline. LUNGS: Bilateral air entry, few rhonchi. CARDIOVASCULAR: S1 and S2. No murmurs, rubs, or gallops. ABDOMEN: Soft and nontender. EXTREMITIES: No clubbing. No cyanosis. No edema. INTEGUMENT: No rash or purpura. LABORATORY DATA: Labs reviewed per the chart record. 13 white count, 27 hematocrit, and 215 platelets. 3.6 potassium, 26 BUN, and 1.2 creatinine. Lactic acid 21, other labs mostly normal. IMPRESSION AND PLAN: 1. Severe pneumonia, acute respiratory distress syndrome. Reasonable to treat for refractory pneumonia. 2. Acute respiratory failure, intubated. 3. Hypothyroidism. 4. Hypertension. 5. Diabetes. 6. Admit in November 2018 with reported hemoptysis. Check for Legionella in the urine. Cover with broad-spectrum antibiotics to cover even for resistant organisms. Merrem, quinolone, at least one dose of vancomycin. Check sputum culture. Considerations could be for bronchoscopy if consideration for alveolar hemorrhage . As I just reviewed some old reports right now, we need to send off for ANCA and possibly even anti-GBM antibodies. Urinalysis was already requested and may be able to show as the patient has hematuria. The patient has been initiated on and modified on lung protective ventilation and furthermore, the patient needs sedation for synchrony, comfort, and safety. DVT prophylaxis noting that based on initial findings we may have to modify in case alveolar hemorrhage is a bit concerned noting that the CAT scan for the most part is better now than what it was 6-7 weeks ago. We will consider adding escalating GI prophylaxis next day, but looks like the patient will have stay on the ventilator. Greater than 30 minutes in direct care and coordination on this day. The patient is in critical condition. I discussed with daughter and son and primary physician as well as nursing and RT. MD JAMES Salinas/INDERJIT /[id number]
[2019-01-24] MEDS: ENOXAPARIN SOD INJ 40 MG/0.4 ML SYR SC SCH (16:05)
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
[2019-01-24] MEDS ORDERED: AZITHROMYCIN 500MG/NS 250 ML 250 ML IV SCH (20:00)
[2019-01-24] MEDS: LEVOFLOXACIN 750MG/D5W 150ML 150 ML IV SCH (20:06)
[2019-01-24] MEDS ORDERED: DEXMEDETOMIDINE 200MCG/NS 50ML 50 ML IV ONE (20:13)
[2019-01-24] MEDS ORDERED: DEXMEDETOMIDINE 200MCG/NS 50ML 50 ML IV PRN (20:15)
[2019-01-24] MEDS: DEXMEDETOMIDINE 200MCG/NS 50ML 50 ML IV PRN (20:41)
[2019-01-24] MEDS: MEROPENEM 1GM 100 ML IV SCH (20:44)
[2019-01-25] VITALS (25 sets, daily range): BP systolic 90–117; BP diastolic 53–99
--- NOTE | 2019-01-25 00:26 | Diagnostic Imaging Report ---
Exam: Abdominal film Clinical History: NG tube placement Comparison: None. DISCUSSION: The right side of the abdomen is not included on the radiograph. Enteric tube is noted. The tip projects over the expected region of the gastric fundus. Side port projects near the expected region of the GE junction. The bowel gas pattern shows multiple mildly dilated loops of small bowel. Gas is noted throughout the visualized portions of the colon. No favian pneumoperitoneum or abnormal calcification. Regional skeletal structures are grossly intact. IMPRESSION: Enteric tube tip projects over the expected region of the gastric fundus. Findings suggestive of ileus. Signed by: Dr. Carlos Rapp M.D. on 01/25/2019 12:22 AM
[2019-01-25] MEDS ORDERED: POTASSIUM CHLORIDE 20MEQ/100ML 100 ML IV ONE (02:15)
[2019-01-25] MEDS: PROPOFOL IV EMULSION 10MG/ML 100 ML IV SCH ×2 (03:00→21:11)
[2019-01-25 05:07] LABS: BASOPHILS % 0.1 % (0.0-1.0); EOSINOPHILS # (AUTO) 0.1 (0.0-0.4); EOSINOPHILS % 0.6 % (0.0-6.0); HEMATOCRIT 25.2 % (34.2-44.1); HEMOGLOBIN 8.2 g/dL (12.0-16.0); LYMPHOCYTES # (AUTO) 0.5 (1.0-3.2); LYMPHOCYTES % 5.5 % (18.0-39.1); MEAN CORPUSCULAR HEMOGLOBIN 26.5 pg (28-32); MEAN CORPUSCULAR HGB CONC 32.5 g/dL (31-35); MEAN CORPUSCULAR VOLUME 81.3 fL (81-99); MONOCYTES # (AUTO) 0.4 (0.2-0.8); MONOCYTES % 4.5 % (4.4-11.3); NEUTROPHILS # (AUTO) 8.6 (2.1-6.9); NEUTROPHILS % 88.7 % (38.7-80.0); PLATELET COUNT 210 x10e3/uL (140-360); RED CELL DISTRIBUTION WIDTH 20.3 % (11.7-14.4)
[2019-01-25 05:29] LABS: ALBUMIN 2.5 g/dL (3.5-5.0); ALBUMIN/GLOBULIN RATIO 0.7 (0.8-2.0); ANION GAP 18.4 mmol/L (8-16); CALCIUM 8.8 mg/dL (8.4-10.2); CREATININE, SERUM 1.44 mg/dL (0.57-1.11); MAGNESIUM 1.2 MG/DL (1.3-2.1); PHOSPHORUS 3.7 MG/DL (2.3-4.7); POTASSIUM 3.4 mmol/L (3.5-5.1)
[2019-01-25] MEDS: INSULIN REGULAR, HUMAN 100 UNIT/1 ML 3ML VIAL SQ SCH ×5 (05:40→23:49)
[2019-01-25] MEDS: FUROSEMIDE INJ 10 MG/ML 4 ML VIAL IV SCH ×3 (05:40→22:09)
--- NOTE | 2019-01-25 06:18 | Diagnostic Imaging Report ---
Examination: Single AP view of the chest. COMPARISON: Chest radiograph 01/24/2019 INDICATION: ARDS DISCUSSION: Endotracheal tube is stable in position. Enteric tube identified on comparison abdominal radiograph 01/24/2019 is no longer visualized and may have been removed in the interim. The lungs remain well-inflated. Interval improvement in bilateral consolidations, left worse than right relative to 01/24/2019. Stable cardiomediastinal contour. No large pleural effusion. No acute osseous abnormality. IMPRESSION: Stable position of endotracheal tube. Significant interval improvement in bilateral consolidations relative to 01/24/2019. Signed by: Dr. Carlos Rapp M.D. on 01/25/2019 6:15 AM
[2019-01-25 07:02] LABS: HIV 1&2 AB SCREEN NON-REACTIVE (NONREACTIVE)
[2019-01-25 07:25] LABS: LYMPHOCYTES % (MANUAL) 11 % (19-48); MONOCYTES % (MANUAL) 5 % (3.4-9.0); NEUTROPHILS % (MANUAL) 84 % (40-74); PLATELET ESTIMATE ADEQUATE
[2019-01-25] MEDS: FAMOTIDINE 20 MG/2 ML VIAL IV SCH (08:05)
[2019-01-25] MEDS: MEROPENEM 1GM 100 ML IV SCH ×2 (08:05→21:10)
[2019-01-25] MEDS ORDERED: LIDOCAINE HCL 4% 50 ML BTL ONE (08:53)
[2019-01-25] MEDS ORDERED: LIDOCAINE HCL 2% 30 ML TUBE ONE (08:53)
[2019-01-25] MEDS ORDERED: POTASSIUM CHLORIDE 20MEQ/15ML UDC NG ONE (10:10)
[2019-01-25] MEDS: DEXTROSE 5% 1,000 ML IV SCH (11:40)
--- NOTE | 2019-01-25 12:06 | Diagnostic Imaging Report ---
Exam: KUB Clinical history: NG tube insertion Findings: The tip of the NG tube overlies the right upper quadrant presumably in the region of the distal stomach. Air-filled prominent small bowel loops are seen throughout the visualized abdomen. The regional osseous structures are unremarkable. Signed by: Dr. Awais Fletcher MD on 01/25/2019 12:03 PM
--- NOTE | 2019-01-25 12:15 | Operative Report ---
DATE OF PROCEDURE: 01/25/2019 SURGEON: Andrea Hernandez MD OPERATIVE PROCEDURE: Fiberoptic flexible bronchoscopy. INDICATION: Respiratory failure. CONSENT: Informed consent from the daughter, Nayeli. OPERATIVE FINDINGS: Mrs. Knight had preexisting endotracheal tube in place. Via the 7.5 tube, the flexible bronchoscope was inserted into the tracheobronchial tree. The lower trachea and bilateral airways were inspected. There was moderately viscous and slightly yellow tinged secretions at times, though most of the airways were clear. Upon suctioning the airways, we would occasionally get yellow secretions. There were no endobronchial masses and there was normal airways configuration. The left lingula was targeted for bronchioloalveolar lavage. While there was reddish blood-tinged fluid, there was no progressively worse bloodiness upon serial aliquots. No evidence of proteinosis. Washings were done of the airways to remove the small remnant secretions that were yellow tinged and moderately viscous. At this point, the procedure was terminated when the scope was removed and the patient was allowed to recover on the ventilator. ESTIMATED BLOOD LOSS: None. COMPLICATIONS: None. IMPRESSION: Successful bronchoscopy with washes and bronchioloalveolar lavage. RECOMMENDATIONS: Followup analyses. MD JAMES Salinas/PAULAL /[id number]
[2019-01-25 12:22] LABS: BODY FLUID TYPE SEE COMMENTS
[2019-01-25 12:23] LABS: BODY FLUID APPEARANCE CLOUDY; BODY FLUID COLOR STRAW; RBC,BODY FLUID 570405 cells/uL; WBC,BODY FLUID 372 cells/uL
[2019-01-25 12:46] LABS: EOSINOPHILS,BODY FLUID 1 %; LYMPHOCYTES,BODY FLUID 10 %; MONO/MACROPHG,BODY FLUID 10 %; NEUTROPHILS,BODY FLUID 75 %; OTHER CELLS,BODY FLUID 4 %
--- NOTE | 2019-01-25 13:05 | Progress Note ---
DATE: 01/25/2019 CONSULTING PHYSICIANS: 1. Andrea Hernandez MD with Pulmonary. 2. Carlos Manriquez MD for Surgery. CHIEF COMPLAINT: Shortness of breath due to pneumonia and hemoptysis. MEDICATIONS: Please see MAR. REVIEW OF SYSTEMS: The patient is intubated, remains sedated. OBJECTIVE: VITAL SIGNS: Temperature 99.5, pulse 60, blood pressure 104/63, respirations 20, and SpO2 of 98%. She remains intubated. GENERAL: She is sedated. NECK: Supple. LUNGS: Decreased breath sounds. CARDIOVASCULAR: Heart rate and rhythm are normal. ABDOMEN: Distended with hypoactive bowel sounds. EXTREMITIES: No edema noted. NEUROLOGICAL: The patient is sedated. LABORATORY DATA: Sodium is 139, potassium 3.4 replaced, and creatinine 1.44. Hemoglobin 8.2, white blood cells 9.7, and neutrophils 88.7. Chest x-ray shows stable ET-tube. Abdominal x-ray showed ileus. IMPRESSION: 1. Acute respiratory failure due to pneumonia, remains intubated. 2. Sepsis likely due to multifocal pneumonia. 3. New ileus. 4. Diabetes. 5. Hypertension. 6. Hypothyroidism. 7. Iron deficiency anemia. PLAN: The patient had a bronchoscopy done this morning by Dr. Hernandez with Pulmonology, she remains intubated. We will continue with IV antibiotics. X-ray also showed ileus, NG-tube inserted. We will start low intermittent suctioning and consult Dr. Manriquez with Surgical Service who will continue to manage her blood pressure and diabetes and treat as needed. Potassium was replaced this morning for K of 3.4. Dictated by PATTI Drake Danii Summers MD MY/MODL /[id number]
[2019-01-25] MEDS: ENOXAPARIN SOD INJ 40 MG/0.4 ML SYR SC SCH (16:02)
[2019-01-25] MEDS: LEVOFLOXACIN 750MG/D5W 150ML 150 ML IV SCH (20:05)
[2019-01-25] MEDS: DEXMEDETOMIDINE 200MCG/NS 50ML 50 ML IV PRN (21:11)
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
[2019-01-26] VITALS (24 sets, daily range): BP systolic 94–163; BP diastolic 53–96
[2019-01-26] MEDS: PROPOFOL IV EMULSION 10MG/ML 100 ML IV SCH ×2 (02:05→06:21)
[2019-01-26] MEDS: DEXMEDETOMIDINE 200MCG/NS 50ML 50 ML IV PRN ×2 (03:37)
[2019-01-26 05:00] LABS: BASOPHILS % 0.1 % (0.0-1.0); EOSINOPHILS # (AUTO) 0.3 (0.0-0.4); LYMPHOCYTES # (AUTO) 0.9 (1.0-3.2); LYMPHOCYTES % 10.7 % (18.0-39.1); MEAN CORPUSCULAR HEMOGLOBIN 26.9 pg (28-32); MEAN CORPUSCULAR HGB CONC 33.9 g/dL (31-35); MEAN CORPUSCULAR VOLUME 79.4 fL (81-99); MONOCYTES # (AUTO) 0.5 (0.2-0.8); MONOCYTES % 5.8 % (4.4-11.3); NEUTROPHILS # (AUTO) 6.7 (2.1-6.9); NEUTROPHILS % 78.1 % (38.7-80.0); PLATELET COUNT 211 x10e3/uL (140-360); RED BLOOD COUNT 2.86 x10e6/uL (3.6-5.1); RED CELL DISTRIBUTION WIDTH 20.3 % (11.7-14.4)
[2019-01-26 05:13] LABS: HEMATOCRIT 22.7 % (34.2-44.1)
[2019-01-26 05:14] LABS: HEMOGLOBIN 7.7 g/dL (12.0-16.0)
[2019-01-26 05:17] LABS: CALCIUM 8.7 mg/dL (8.4-10.2); CREATININE, SERUM 1.43 mg/dL (0.57-1.11); MAGNESIUM 1.2 MG/DL (1.3-2.1)
--- NOTE | 2019-01-26 05:39 | Diagnostic Imaging Report ---
Exam: Abdominal film Clinical History: Ileus Comparison: 01/25/2019 DISCUSSION: Enteric tube tip is unchanged, projecting over the expected region of the gastric antrum/pylorus. Degree of gaseous distention of small bowel loops has improved relative to 01/25/2019. Gas is again noted throughout the large bowel. No mass effect or organomegaly. Regional skeletal structures are intact. IMPRESSION: Stable position of enteric tube with interval improvement in gaseous distention of small bowel relative to 01/25/2019. Signed by: Dr. Carlos Rapp M.D. on 01/26/2019 5:36 AM
--- NOTE | 2019-01-26 05:41 | Diagnostic Imaging Report ---
Examination: Single AP view of the chest. COMPARISON: 01/25/2019 INDICATION: Pneumonia DISCUSSION: Enteric tube tip lies off the current radiograph, and projects over the expected region of the distal gastric body on comparison KUB. Endotracheal tube is stable in position. The lungs remain well aerated with further interval improvement in bilateral consolidations left greater than right relative to 01/25/2019. No new consolidation. No pneumothorax. No acute osseous abnormality. IMPRESSION: Interval placement of an enteric tube with stable position of endotracheal tube. Further interval improvement in bilateral airspace consolidations relative to 01/25/2019. Signed by: Dr. Carlos Rapp M.D. on 01/26/2019 5:38 AM
[2019-01-26] MEDS: INSULIN REGULAR, HUMAN 100 UNIT/1 ML 3ML VIAL SQ SCH ×3 (06:18→18:00)
[2019-01-26] MEDS: FUROSEMIDE INJ 10 MG/ML 4 ML VIAL IV SCH ×2 (06:20→15:05)
[2019-01-26] MEDS ORDERED: POTASSIUM CHLORIDE 10MEQ/100ML 400 ML IV ONE (07:15)
[2019-01-26] MEDS ORDERED: POTASSIUM CHLORIDE 20MEQ/100ML 200 ML ONE (07:49)
[2019-01-26] MEDS: MEROPENEM 1GM 100 ML IV SCH (09:00)
[2019-01-26] MEDS: FAMOTIDINE 20 MG/2 ML VIAL IV SCH (10:38)
[2019-01-26] MEDS: DEXTROSE 5% 1,000 ML IV SCH (10:38)
[2019-01-26 14:46] LABS: ABG HCO3 23 mmol/L (23-28); ABG PCO2 33 mmHg (41-51); ABG PH 7.45 (7.31-7.41); ABG PO2 74 mmHg (80-105)
--- NOTE | 2019-01-26 14:47 | Progress Note ---
DATE: 01/26/2019 CONSULTANTS: 1. Dr. Andrea Hernandez. 2. Dr. Carlos Manriquez. CHIEF COMPLAINT: Dyspnea due to pneumonia. REVIEW OF SYSTEMS: Unable to obtain as the patient remains intubated, but does not appear to be in any pain or distress. PHYSICAL EXAMINATION: VITAL SIGNS: Temperature 98, pulse 56, BP 108/62, respirations 22, SpO2 is 97%. GENERAL: She is intubated, but alert and awake. NECK: Supple. LUNGS: Decreased breath sounds with some wheezing in the lower lobes. CARDIOVASCULAR: Normal rate and rhythm. No chest pain. ABDOMEN: Soft and active bowel sounds. EXTREMITIES: Active range of motion. No edema noted. NEUROLOGY: Alert and awake. LABORATORY DATA: Please review labs. Potassium was 3.0 this morning, replaced. Hemoglobin is 7.7. IMPRESSION: 1. Acute respiratory failure due to pneumonia and sepsis. 2. Sepsis due to pneumonia. 3. Ileus, likely reactive. NG tube in place. We will continue low intermittent suctioning. Abdomen x-ray is improving from today. 4. History of diabetes. We will continue to check blood sugar and treat as needed. 5. Hypertension. She is stable at this time. 6. Hypokalemia is replaced this morning. PLAN: The plan is to extubate patient today per nursing staff. Chest x-ray today is improved, we will continue with IV antibiotics, Levaquin and meropenem for broad coverage, replace electrolytes. We will keep the NG tube until ileus is resolved. Further recommendations per Dr. Hernandez and Dr. Manriquez. Dictated by PATTI Drake Danii Summers MD MY/MODL /[id number]
[2019-01-26] MEDS: ENOXAPARIN SOD INJ 40 MG/0.4 ML SYR SC SCH (16:32)
[2019-01-26] MEDS: LEVOFLOXACIN 750MG/D5W 150ML 150 ML IV SCH (20:20)
[2019-01-26] MEDS ORDERED: ACETAMINOPHEN 1000 MG/100 ML IV PRN (20:30)
[2019-01-26] MEDS ORDERED: ACETAMINOPHEN 1000 MG/100 ML 100 ML IV PRN (20:45)
[2019-01-27] VITALS (25 sets, daily range): BP systolic 131–181; BP diastolic 70–95
[2019-01-27] MEDS ORDERED: ALBUTEROL SULF 0.083% NEB SOLN 3 ML NEB NEB PRN (00:30)
[2019-01-27] MEDS ORDERED: MAGNESIUM SULFATE 2GM/50ML 50 ML IV ONE (00:30)
[2019-01-27] MEDS ORDERED: POTASSIUM CHLORIDE 20MEQ/100ML 100 ML IV ONE (00:30)
[2019-01-27] MEDS: FUROSEMIDE INJ 10 MG/ML 4 ML VIAL IV SCH ×4 (00:47→23:30)
[2019-01-27] MEDS: MEROPENEM 1GM 100 ML IV SCH ×2 (00:47→10:00)
[2019-01-27 05:25] LABS: BASOPHILS # (AUTO) 0.1 (0.0-0.1); BASOPHILS % 0.6 % (0.0-1.0); EOSINOPHILS # (AUTO) 0.1 (0.0-0.4); EOSINOPHILS % 1.5 % (0.0-6.0); HEMATOCRIT 29.3 % (34.2-44.1); HEMOGLOBIN 9.8 g/dL (12.0-16.0); LYMPHOCYTES # (AUTO) 1.1 (1.0-3.2); LYMPHOCYTES % 11.1 % (18.0-39.1); MEAN CORPUSCULAR HEMOGLOBIN 26.7 pg (28-32); MEAN CORPUSCULAR HGB CONC 33.4 g/dL (31-35); MEAN CORPUSCULAR VOLUME 79.8 fL (81-99); MONOCYTES # (AUTO) 0.9 (0.2-0.8); MONOCYTES % 9.8 % (4.4-11.3); NEUTROPHILS # (AUTO) 6.9 (2.1-6.9); NEUTROPHILS % 72.8 % (38.7-80.0); PLATELET COUNT 292 x10e3/uL (140-360); RED BLOOD COUNT 3.67 x10e6/uL (3.6-5.1); RED CELL DISTRIBUTION WIDTH 20.3 % (11.7-14.4)
[2019-01-27 05:49] LABS: ANION GAP 22.4 mmol/L (8-16); CALCIUM 9.9 mg/dL (8.4-10.2); CREATININE, SERUM 1.27 mg/dL (0.57-1.11); POTASSIUM 3.4 mmol/L (3.5-5.1)
[2019-01-27] MEDS: INSULIN REGULAR, HUMAN 100 UNIT/1 ML 3ML VIAL SQ SCH ×5 (06:00→23:12)
--- NOTE | 2019-01-27 06:03 | Diagnostic Imaging Report ---
Examination: Single AP view of the chest. COMPARISON: 01/26/2019 INDICATION: CHF DISCUSSION: See impression IMPRESSION: Interval extubation. Enteric tube remains with the tip projecting off the current radiograph, inferior to the left hemidiaphragm. When accounting for differences in technique, stable appearance of the heart and lungs with patchy bilateral airspace consolidations, likely reflective of alveolar edema as described on prior CT 01/23/2019. Signed by: Dr. Carlos Rapp M.D. on 01/27/2019 6:00 AM
[2019-01-27 09:01] LABS: ANISOCYTOSIS SLIGHT; EOSINOPHILS % (MANUAL) 4 % (0-7); HYPOCHROMASIA SLIGHT; LYMPHOCYTES % (MANUAL) 14 % (19-48); METAMYELOCYTES % (MANUAL) 1 % (0-0); MONOCYTES % (MANUAL) 7 % (3.4-9.0); NEUTROPHILS % (MANUAL) 73 % (40-74); PLATELET ESTIMATE ADEQUATE; PLATELET MORPHOLOGY COMMENT NORMAL; RBC MORPHOLOGY COMMENT ABNORMAL; TOXIC GRANULATION SLIGHT
[2019-01-27] MEDS: FAMOTIDINE 20 MG/2 ML VIAL IV SCH (10:00)
[2019-01-27] MEDS: HYDRALAZINE HCL 20 MG/ML VIAL IV PRN ×2 (11:15→19:57)
[2019-01-27] MEDS: DEXTROSE 5% 1,000 ML IV SCH (12:50)
--- NOTE | 2019-01-27 12:55 | Diagnostic Imaging Report ---
RADIOGRAPH(S) OF THE ABDOMEN AND PELVIS, 2 view(s) HISTORY: Ileus COMPARISON: KUB January 26, 2019 and January 25, 2019 FINDINGS: Multiple overlying monitoring leads. Motion artifact partially limits sensitivity and specificity of the exam. Unchanged appearance of the nasogastric/orogastric tube. Continued improvement of the gaseous distention of the small bowel, now within normal limits. Air in the rectosigmoid region. No definite urinary tract calcification. The bones are partially obscured by stool and overlying bowel gas. IMPRESSION: Findings compatible with improved/resolved ileus. Signed by: Dr. Adal Mcghee D.O., M.M.M. on 01/27/2019 12:52 PM
[2019-01-27] MEDS ORDERED: BISACODYL 10 MG SUPP PR ONE (13:00)
[2019-01-27] MEDS ORDERED: POTASSIUM CHLORIDE 20MEQ/100ML 200 ML IV ONE (14:00)
[2019-01-27] MEDS: ACETAMINOPHEN 325 MG TAB PO PRN (15:04)
--- NOTE | 2019-01-27 15:33 | Progress Note ---
DATE: 01/27/2019 CONSULTING PHYSICIANS: 1. Andrea Hernandez M.D. with Pulmonary. 2. Carlos Manriquez M.D., with Surgical team. CHIEF COMPLAINT: Dyspnea and hemoptysis. ALLERGIES: NO KNOWN DRUG ALLERGIES. REVIEW OF SYSTEMS: GENERAL: In no acute distress, complaining of headache. LUNGS: No shortness of breath. Some cough productive. HEART: No chest pain or palpitations. ABDOMEN: Soft and nontender. No nausea or vomiting. PHYSICAL EXAMINATION: VITAL SIGNS: Temperature is 99, pulse is 105, blood pressure is 154/79, respirations 20, and SpO2 is 97%. GENERAL: Alert, awake, oriented x3. HEENT: NG-tube in place. NECK: Supple. LUNGS: Decreased breath sounds. CARDIOVASCULAR: Rate is normal. No swelling in the lower extremities noted. ABDOMEN: Soft and nontender. Normal bowel sounds present. EXTREMITIES: Active ROM. NEUROLOGIC: Alert, awake, oriented x3. MEDICATIONS: Continue Levaquin, IV hydralazine as needed, insulin as needed, and Lasix q.8 hours IV. LABORATORY DATA: Potassium was 3.4. Hemoglobin 9.8, PT 15.6 and 37.5. INR 1.18. Although, HIV is negative, CD4 count is 179. IMPRESSION: 1. Sepsis due to pneumonia. 2. Ileus, now resolved. 3. Diabetes type 2. 4. Hypertension. 5. Hypokalemia. IMAGING DATA: KUB this morning shows resolved ileus. Chest x-ray improved with bilateral consolidation. Blood culture is negative so far. PLAN: We will remove her NG tube today and start on clear liquids as she has passed her swallowing test. We will continue with IV Lasix for pleural edema and replace her potassium as needed. We will consult Physical therapy to evaluate and treat. We will repeat her CD4 count. We will transfer the patient to [facility]urg[facility] with tele. Dictated by PATTI Drake Danii Summers MD MY/MODL /[id number]
[2019-01-27] MEDS: ENOXAPARIN SOD INJ 40 MG/0.4 ML SYR SC SCH (16:58)
[2019-01-27] MEDS ORDERED: ACETAMINOPHEN 1000 MG/100 ML IV PRN (21:00)
[2019-01-27] MEDS: LEVOFLOXACIN 750MG/D5W 150ML 150 ML IV SCH (23:01)
[2019-01-28] VITALS (8 sets, daily range): BP systolic 144–174; BP diastolic 78–99
[2019-01-28] MEDS: MEROPENEM 1GM 100 ML IV SCH ×2 (00:31→09:20)
[2019-01-28] MEDS: FUROSEMIDE INJ 10 MG/ML 4 ML VIAL IV SCH ×2 (06:03→20:33)
[2019-01-28] MEDS: ACETAMINOPHEN 325 MG TAB PO PRN ×3 (06:06→21:52)
[2019-01-28] MEDS: INSULIN REGULAR, HUMAN 100 UNIT/1 ML 3ML VIAL SQ SCH ×4 (06:07→23:58)
[2019-01-28] MEDS: FAMOTIDINE 20 MG/2 ML VIAL IV SCH (09:20)
[2019-01-28 11:26] LABS: BASOPHILS # (AUTO) 0.1 (0.0-0.1); BASOPHILS % 0.5 % (0.0-1.0); EOSINOPHILS # (AUTO) 0.1 (0.0-0.4); HEMATOCRIT 32.9 % (34.2-44.1); HEMOGLOBIN 11.4 g/dL (12.0-16.0); LYMPHOCYTES % 10.2 % (18.0-39.1); MEAN CORPUSCULAR HEMOGLOBIN 26.8 pg (28-32); MEAN CORPUSCULAR HGB CONC 34.7 g/dL (31-35); MEAN CORPUSCULAR VOLUME 77.2 fL (81-99); MONOCYTES # (AUTO) 1.1 (0.2-0.8); MONOCYTES % 11.2 % (4.4-11.3); NEUTROPHILS # (AUTO) 7.2 (2.1-6.9); NEUTROPHILS % 72.1 % (38.7-80.0); PLATELET COUNT 327 x10e3/uL (140-360); RED BLOOD COUNT 4.26 x10e6/uL (3.6-5.1); RED CELL DISTRIBUTION WIDTH 20.3 % (11.7-14.4)
[2019-01-28 11:40] LABS: ANION GAP 17.1 mmol/L (8-16); CALCIUM 10.1 mg/dL (8.4-10.2); CREATININE, SERUM 1.33 mg/dL (0.57-1.11); POTASSIUM 3.1 mmol/L (3.5-5.1)
[2019-01-28 13:06] LABS: ANISOCYTOSIS SLIGHT; BAND NEUTROPHILS % (MANUAL) 3 %; LYMPHOCYTES % (MANUAL) 13 % (19-48); METAMYELOCYTES % (MANUAL) 2 % (0-0); MONOCYTES % (MANUAL) 11 % (3.4-9.0); MYELOCYTES % (MANUAL) 1 % (0-0); NEUTROPHILS % (MANUAL) 69 % (40-74); PLATELET ESTIMATE ADEQUATE; PLATELET MORPHOLOGY COMMENT NORMAL; RBC MORPHOLOGY COMMENT NORMAL
[2019-01-28 13:07] LABS: MICROCYTOSIS SLIGHT
[2019-01-28] MEDS ORDERED: POTASSIUM CHLORIDE 10MEQ EA PO ONE (14:30)
[2019-01-28] MEDS: METOPROLOL TARTRATE 25 MG TAB PO SCH ×2 (15:10→17:05)
--- NOTE | 2019-01-28 15:18 | Progress Note ---
DATE: 01/28/2019 CONSULTING PHYSICIANS: 1. Dr. Andrea Hernandez for Pulmonary. 2. Dr. Carlos Manriquez, for Surgery. CHIEF COMPLAINT: Pneumonia and shortness of breath. SUBJECTIVE: Shortness of breath and cough have improved. REVIEW OF SYSTEMS: GENERAL: In no acute distress. HEENT: No mouth sores. LUNGS: No shortness of breath or improved cough. CARDIOVASCULAR: No chest pain or palpitations. ABDOMEN: No nausea or vomiting. Moving bowels x1 yesterday. NEUROLOGIC: Alert and oriented. PHYSICAL EXAMINATION: VITAL SIGNS: Temperature 98.2, pulse is 118, blood pressure is 155/93, respiration is 23, and SpO2 is 94. GENERAL: Alert, awake, and oriented x3. Appears to be in no distress. HEENT: Normocephalic. Moist mucous membranes. LUNGS: Decreased breath sounds. CARDIOVASCULAR: Sinus tachycardia with a rate of 111, 118. ABDOMEN: Soft and nontender. NEURO: Alert, awake, and oriented x3. MUSCULOSKELETAL: No swelling. Active ROM. MEDICATIONS: Please see MAR. We will decrease Lasix 40 mg q.12 hours and will add metoprolol 25 mg b.i.d. for the sinus tachycardia. LABORATORY DATA: Pertinent labs for potassium were 3.1, sodium is 139, CO2 of 31, hemoglobin is 11.4, WBC is 9.92. Still pending on CD4 count. Repeat CD4 count. IMPRESSIONS: 1. Sepsis, due to pneumonia. 2. Ileus, now resolved. 3. Sinus tachycardia. 4. Diabetes type 2. 5. Hypokalemia, we will replace. 6. Chronic kidney disease 3. 7. Hypertension. PLAN: We will continue antibiotics and IV Lasix decreased to 40 mg q.12 hours. We will continue to monitor intake and output, we will start on metoprolol low dose for sinus tachycardia. We will replace potassium of 3.1. Dictated by PATTI Drake Danii Summers MD MY/MODL /[id number]
[2019-01-28] MEDS ORDERED: TEMAZEPAM 15 MG CAP PO PRN (15:45)
[2019-01-28] MEDS: ENOXAPARIN SOD INJ 40 MG/0.4 ML SYR SC SCH (17:03)
[2019-01-28] MEDS: HYDRALAZINE HCL 20 MG/ML VIAL IV PRN (17:26)
[2019-01-28] MEDS: LEVOFLOXACIN 500MG/D5W 100ML 100 ML IV SCH (20:40)
[2019-01-29] VITALS (8 sets, daily range): BP systolic 133–162; BP diastolic 70–90
[2019-01-29] MEDS: ACETAMINOPHEN 325 MG TAB PO PRN (04:30)
[2019-01-29] MEDS: INSULIN REGULAR, HUMAN 100 UNIT/1 ML 3ML VIAL SQ SCH ×4 (06:06→21:08)
[2019-01-29] MEDS: FUROSEMIDE INJ 10 MG/ML 4 ML VIAL IV SCH (08:17)
[2019-01-29] MEDS: METOPROLOL TARTRATE 25 MG TAB PO SCH ×2 (08:18→16:58)
[2019-01-29 12:04] LABS: ANION GAP 18.9 mmol/L (8-16); CALCIUM 9.9 mg/dL (8.4-10.2); CREATININE, SERUM 1.55 mg/dL (0.57-1.11); POTASSIUM 3.9 mmol/L (3.5-5.1)
--- NOTE | 2019-01-29 13:40 | Diagnostic Imaging Report ---
A single frontal view of the chest. HISTORY: Pneumonia COMPARISON: Chest radiograph January 27, 2019. DISCUSSION: Sensitivity limited by portable technique. Multiple overlying artifacts. IMPRESSION: Interval decrease in the bilateral patchy interstitial and airspace opacities, compatible with improving edema and/or pneumonia. Signed by: Dr. Adal Mcghee D.O., M.M.M. on 01/29/2019 1:37 PM
--- NOTE | 2019-01-29 14:32 | Progress Note ---
DATE: 01/29/2019 CONSULTING PHYSICIANS: 1. Dr. David Mendez with Pulmonary. 2. Dr. Carlos Manriquez with Surgery. CHIEF COMPLAINT: Pneumonia and hemoptysis. REVIEW OF SYSTEMS: GENERAL: No acute distress. HEENT: No mouth sores. LUNGS: No shortness of breath. Cough with clear productive sputum. CARDIOVASCULAR: No chest pain or palpitations. ABDOMEN: No nausea, vomiting. Moving bowels. NEUROLOGIC: Alert and oriented. MUSCULOSKELETAL: Moves all extremities. PHYSICAL EXAMINATION: VITAL SIGNS: Temperature is 96.5, pulse is 84, blood pressure is 155/80, respiration 21, SpO2 is 94% on 2 L via nasal cannula. MEDICATIONS: See medication MAR. LABORATORY DATA: Potassium is 3.9, creatinine is up to 1.55. Hemoglobin 11.4, hematocrit 32.9. Still pending CD4 counts. Rheumatoid factor was 23.9, which is elevated. Pending chest x-ray today. IMPRESSION: 1. Sepsis due to pneumonia. 2. Ileus, now resolved. 3. Sinus tachycardia, now normal sinus rhythm. 4. Diabetes, type 2. 5. Chronic kidney disease, 3. 6. Hypertension. PLAN: We will continue with IV antibiotics. We will continue with metoprolol for heart rate control. We will repeat a chest x-ray to see the improvement of pneumonia. We will decrease her Lasix to 40 mg p.o. daily as her kidney function is worsening. We will repeat labs, CBC, and BMP in a.m. Dictated by Whitney Muir, PATTI Danii Summers MD MY/MODL /[id number]
[2019-01-29] MEDS ORDERED: INSULIN GLARGINE 100 UNITS/ML VIAL SQ NR (15:30)
[2019-01-29] MEDS: ENOXAPARIN SOD INJ 40 MG/0.4 ML SYR SC SCH (16:58)
[2019-01-29] MEDS: LEVOFLOXACIN 500MG/D5W 100ML 100 ML IV SCH (20:20)
[2019-01-29] MEDS: INSULIN GLARGINE 100 UNITS/ML VIAL SQ SCH (21:08)
[2019-01-30] VITALS (8 sets, daily range): BP systolic 117–150; BP diastolic 66–89
[2019-01-30 05:26] LABS: BASOPHILS % 0.5 % (0.0-1.0); EOSINOPHILS # (AUTO) 0.5 (0.0-0.4); EOSINOPHILS % 6.9 % (0.0-6.0); HEMATOCRIT 31.6 % (34.2-44.1); HEMOGLOBIN 10.6 g/dL (12.0-16.0); LYMPHOCYTES # (AUTO) 1.9 (1.0-3.2); LYMPHOCYTES % 25.9 % (18.0-39.1); MEAN CORPUSCULAR HEMOGLOBIN 26.6 pg (28-32); MEAN CORPUSCULAR HGB CONC 33.5 g/dL (31-35); MEAN CORPUSCULAR VOLUME 79.2 fL (81-99); MONOCYTES # (AUTO) 0.6 (0.2-0.8); MONOCYTES % 8.4 % (4.4-11.3); NEUTROPHILS # (AUTO) 3.9 (2.1-6.9); NEUTROPHILS % 52.4 % (38.7-80.0); PLATELET COUNT 312 x10e3/uL (140-360); RED BLOOD COUNT 3.99 x10e6/uL (3.6-5.1); RED CELL DISTRIBUTION WIDTH 20.6 % (11.7-14.4)
[2019-01-30 05:50] LABS: ANION GAP 17.8 mmol/L (8-16); CALCIUM 9.9 mg/dL (8.4-10.2); CREATININE, SERUM 1.48 mg/dL (0.57-1.11); POTASSIUM 3.8 mmol/L (3.5-5.1)
[2019-01-30] MEDS: LEVOTHYROXINE SODIUM 112 MCG TAB PO SCH (06:03)
[2019-01-30 06:49] LABS: BAND NEUTROPHILS % (MANUAL) 2 %; EOSINOPHILS % (MANUAL) 2 % (0-7); LYMPHOCYTES % (MANUAL) 29 % (19-48); MONOCYTES % (MANUAL) 5 % (3.4-9.0); NEUTROPHILS % (MANUAL) 58 % (40-74)
[2019-01-30 06:50] LABS: PLATELET ESTIMATE ADEQUATE; PLATELET MORPHOLOGY COMMENT NORMAL; RBC MORPHOLOGY COMMENT NORMAL
[2019-01-30] MEDS: INSULIN REGULAR, HUMAN 100 UNIT/1 ML 3ML VIAL SQ SCH ×4 (07:30→21:00)
[2019-01-30] MEDS ORDERED: ONDANSETRON HCL 4 MG ORAL DISINTEGRATING TAB PO PRN (08:15)
[2019-01-30] MEDS: METOPROLOL TARTRATE 25 MG TAB PO SCH ×3 (09:03→21:31)
[2019-01-30] MEDS: ASPIRIN 81 MG CHEW TAB PO SCH (09:03)
[2019-01-30] MEDS: FUROSEMIDE 40 MG TAB PO SCH (09:03)
[2019-01-30] MEDS: PANTOPRAZOLE SOD 40 MG TABEC PO SCH (09:03)
[2019-01-30] MEDS: FERROUS SULFATE 325 MG TAB PO SCH (09:03)
[2019-01-30] MEDS: MAGNESIUM OXIDE 400 MG TAB PO SCH (09:03)
[2019-01-30] MEDS: NIFEDIPINE CR 30 MG TAB PO SCH (09:04)
[2019-01-30] MEDS: INSULIN GLARGINE 100 UNITS/ML VIAL SQ SCH ×2 (11:30→17:00)
--- NOTE | 2019-01-30 14:37 | Progress Note ---
DATE: 01/30/2019 CONSULTING PHYSICIANS: 1. Dr. David Mendez with Pulmonary. 2. Dr. Carlos Manriquez with Surgery. CHIEF COMPLAINT: Pneumonia and hemoptysis. REVIEW OF SYSTEMS: GENERAL: No acute distress. HEENT: No mouth sores. LUNGS: Shortness of breath with ambulation with desaturation down to the 80s on room air. HEART: No chest pain. ABDOMEN: Soft. No nausea or vomiting. NEUROLOGIC: Alert and oriented. MUSCULOSKELETAL: Active ROM. SKIN: Dry and intact. OBJECTIVE: VITAL SIGNS: Temperature 99.0, pulse is 115, BP is 150/82, respirations 26, and SpO2 is 100%. GENERAL: Alert, awake, and oriented with no acute distress. HEENT: Normocephalic, atraumatic. LUNGS: Decreased breath sounds. Improved cough. CARDIOVASCULAR: S1, S2. Tachycardic. ABDOMEN: Soft, nontender, and nondistended. NEUROLOGIC: Alert, awake, and oriented x3. MUSCULOSKELETAL: Able to move all limbs. Walking with assistance. SKIN: Dry and intact. No gross abnormality. LABORATORY DATA: Potassium 3.8, sodium 138, chloride 94, CO2 30, creatinine 1.48, and BUN is 36. White blood cells 7.49, hemoglobin 10.6. Still waiting on CD4 counts. RA factor was elevated to 23.9. Chest x-ray shows improvement from 01/29/2019. IMPRESSION: 1. Sepsis due to pneumonia with acute respiratory failure, now improved. 2. Ileus, now resolved. 3. Sinus tachycardic with no chest pain, started on beta-blockers. 4. Diabetes type 2. We will increase the sliding scale to high dose and Lantus added 15 units b.i.d. 5. Chronic kidney disease, 3. We will continue to monitor. Creatinine is improved to 1.48 and avoid nephrotoxic drugs. 6. Hypertension. We will discontinue nifedipine and increase metoprolol. PLAN: Plan is to repeat BMP and chest x-ray for tomorrow, we will continue to work with physical therapy, we will continue to monitor oxygenation on room air to assess for home O2. Dictated by PATTI Drake Danii Summers MD MY/MODL /[id number]
[2019-01-30] MEDS: GLIPIZIDE 5 MG TAB PO SCH (16:24)
[2019-01-30] MEDS: ENOXAPARIN SOD INJ 40 MG/0.4 ML SYR SC SCH (16:24)
[2019-01-30] MEDS: LEVOFLOXACIN 500MG/D5W 100ML 100 ML IV SCH (19:47)
[2019-01-30] MEDS: BUDESONIDE/FORMOTEROL FUMARATE 80/4.5MCG 6.9 GM INH AEROSOL IH SCH (20:10)
[2019-01-31 04:09] VITALS: BP 138/81
[2019-01-31 05:35] LABS: ANION GAP 15.3 mmol/L (8-16); CALCIUM 9.3 mg/dL (8.4-10.2); CREATININE, SERUM 1.22 mg/dL (0.57-1.11); POTASSIUM 3.3 mmol/L (3.5-5.1)
[2019-01-31] MEDS: LEVOTHYROXINE SODIUM 112 MCG TAB PO SCH (05:46)
--- NOTE | 2019-01-31 05:49 | Diagnostic Imaging Report ---
EXAMINATION: CHEST SINGLE (PORTABLE) COMPARISON: 01/29/2019 INDICATION: Pneumonia, shortness of breath ^pneumonia ^[id number] ^[id number] DISCUSSION: Frontal view of the chest obtained at 0456 hours. HEART AND MEDIASTINUM: The heart is normal in size. The aorta is ectatic LINES: None. LUNGS: Vascular congestion has improved. Lungs are well inflated and clear. PLEURA: No pleural effusion or pneumothorax. BONES AND SOFT TISSUES: No focal osseous lesion. The soft tissues are normal. IMPRESSION: Resolved vascular congestion and airspace opacities. Signed by: Dr. Mary Rice MD on 01/31/2019 5:46 AM
[2019-01-31] MEDS: BUDESONIDE/FORMOTEROL FUMARATE 80/4.5MCG 6.9 GM INH AEROSOL IH SCH ×2 (07:20→19:00)
[2019-01-31] MEDS: INSULIN REGULAR, HUMAN 100 UNIT/1 ML 3ML VIAL SQ SCH ×4 (07:30→20:03)
[2019-01-31 08:45] VITALS: BP 164/85
[2019-01-31] MEDS: METOPROLOL TARTRATE 25 MG TAB PO SCH ×3 (08:45→20:33)
[2019-01-31] MEDS: MAGNESIUM OXIDE 400 MG TAB PO SCH (08:45)
[2019-01-31] MEDS: FUROSEMIDE 40 MG TAB PO SCH (08:45)
[2019-01-31] MEDS: ASPIRIN 81 MG CHEW TAB PO SCH (08:45)
[2019-01-31] MEDS: GLIPIZIDE 5 MG TAB PO SCH ×2 (08:45→16:43)
[2019-01-31] MEDS: FERROUS SULFATE 325 MG TAB PO SCH (08:45)
[2019-01-31] MEDS: NIFEDIPINE CR 30 MG TAB PO SCH (08:46)
[2019-01-31] MEDS: PANTOPRAZOLE SOD 40 MG TABEC PO SCH (08:46)
[2019-01-31] MEDS: INSULIN GLARGINE 100 UNITS/ML VIAL SQ SCH ×2 (08:46→16:45)
[2019-01-31] MEDS ORDERED: POTASSIUM CHLORIDE 10MEQ EA PO ONE (09:00)
[2019-01-31 12:00] VITALS: BP 138/86
--- NOTE | 2019-01-31 14:13 | Progress Note ---
DATE: 01/31/2019 CONSULTING PHYSICIANS: 1. Dr. Andrea Posey with Pulmonary. 2. Dr. Carlos Manriquez with Surgery. CHIEF COMPLAINT: Shortness of breath, improved and cough improved. REVIEW OF SYSTEMS: GENERAL: No acute distress. HEENT: No headache. No vision problems. LUNGS: No shortness of breath. Productive cough, clear. CARDIOVASCULAR: No chest pain or palpitations. ABDOMEN: Soft. No nausea, vomiting. NEURO: She is alert and oriented. MUSCULOSKELETAL: She is up and walking. SKIN: Intact. No rash. OBJECTIVE: VITAL SIGNS: Temperature is 97.8, pulse is 92, blood pressure is 164/85, respirations 18, SpO2 is 100% on 2 L of oxygen via nasal cannula. GENERAL: Alert, awake, and oriented x3. NECK: Supple. No bruits. LUNGS: Decreased breath sounds bilaterally. HEENT: Normocephalic, atraumatic. CARDIOVASCULAR: Normal sinus rhythm, S1 and S2. No murmurs. ABDOMEN: Soft and nontender. EXTREMITIES: No edema. Active ROM. NEUROLOGICAL: Alert, awake, and oriented x3. SKIN: Intact. No gross abnormality noted. LABORATORY DATA: Sodium 134, potassium is 3.3, creatinine is 1.22, BUN is 32. Glucose 99. WBCs 7.49, hemoglobin 10.6, hematocrit 31.6. Still pending AFB cultures and CD4 count. IMAGING: Chest x-ray shows resolved congestion. IMPRESSION AND DIAGNOSES: 1. Sepsis due to pneumonia, resolved. 2. Ileus, now resolved and tolerating diet. 3. Sinus tachycardia, now in normal sinus rhythm, on beta-blockers. 4. Diabetes type 2. Continue current treatment. 5. Chronic kidney disease 3, improving. Creatinine 1.22 today. 6. Hypertension, now controlled with medications. PLAN: Continue with antibiotics, neb treatments, we will decrease Lasix to 20 mg p.o. daily. Physical therapy to continue working with her, we will check O2 saturations on room air and anticipate discharge home tomorrow. Dictated by PATTI Drake Saraching Christo Summers MD MY/MODL /[id number]
[2019-01-31 14:30] VITALS: BP 132/79
[2019-01-31] MEDS: ENOXAPARIN SOD INJ 40 MG/0.4 ML SYR SC SCH (16:43)
[2019-01-31] MEDS: LEVOFLOXACIN 500MG/D5W 100ML 100 ML IV SCH (20:33)
[2019-01-31 20:46] VITALS: BP 134/74
[2019-01-31 22:19] VITALS: BP 134/74
[2019-02-01 00:11] VITALS: BP 130/70
[2019-02-01 04:22] VITALS: BP 163/83
[2019-02-01 06:03] LABS: ANION GAP 16.7 mmol/L (8-16); CALCIUM 9.3 mg/dL (8.4-10.2); CREATININE, SERUM 1.11 mg/dL (0.57-1.11); POTASSIUM 3.7 mmol/L (3.5-5.1)
[2019-02-01] MEDS: LEVOTHYROXINE SODIUM 112 MCG TAB PO SCH (06:28)
[2019-02-01 07:15] VITALS: BP 142/80
[2019-02-01] MEDS: INSULIN REGULAR, HUMAN 100 UNIT/1 ML 3ML VIAL SQ SCH ×2 (07:30→11:46)
[2019-02-01] MEDS: BUDESONIDE/FORMOTEROL FUMARATE 80/4.5MCG 6.9 GM INH AEROSOL IH SCH (08:00)
[2019-02-01] MEDS: FERROUS SULFATE 325 MG TAB PO SCH (08:27)
[2019-02-01] MEDS: ASPIRIN 81 MG CHEW TAB PO SCH (08:27)
[2019-02-01] MEDS: GLIPIZIDE 5 MG TAB PO SCH (08:27)
[2019-02-01] MEDS: PANTOPRAZOLE SOD 40 MG TABEC PO SCH (08:27)
[2019-02-01] MEDS: METOPROLOL TARTRATE 25 MG TAB PO SCH (08:27)
[2019-02-01] MEDS: MAGNESIUM OXIDE 400 MG TAB PO SCH (08:27)
[2019-02-01] MEDS: NIFEDIPINE CR 30 MG TAB PO SCH (08:27)
[2019-02-01] MEDS: INSULIN GLARGINE 100 UNITS/ML VIAL SQ SCH (08:28)
[2019-02-01] MEDS ORDERED: FUROSEMIDE 20 MG TAB PO SCH (09:00)
[2019-02-01 12:00] VITALS: BP 130/78
[2019-02-01] MEDS ORDERED: LOPRESSOR25 MG PO (13:31)
[2019-02-01] MEDS ORDERED: LEVAQUIN500 MG PO (13:32)
--- NOTE | 2019-02-02 05:20 | Discharge Summary ---
CONSULTING PHYSICIANS: Dr. David Mendez with Pulmonary and Dr. Carlos Manriquez with Surgical Team. PRIMARY CARE DOCTOR: Dr. Mandy Gates at [facility]. FINAL DIAGNOSES: 1. Sepsis due to pneumonia with acute respiratory failure. 2. Ileus. 3. Diabetes. 4. Acute kidney injury. 5. Hypertension. 6. Hypothyroidism. PROCEDURES: Bronchoscopy was done by Dr. Hernandez. She had an NG tube for ileus. HISTORY: Per HPI. HOSPITAL COURSE: Ms. Knight presented with shortness of breath and hemoptysis due to pneumonia. She became hypoxic with increased shortness of breath and so she was intubated and sent to the ICU. CT of the chest showed multifocal consolidation with adjacent ground-glass opacities. IV fluids were started, IV antibiotics for treatment of pneumonia, and also Lasix IV was started for some pulmonary edema seen on imaging. Abdominal x-ray showed ileus when NG tube was inserted to low intermittent suction. Dr. Manriquez was consulted for possible surgical intervention. Serial KUBs were improving, showed no further surgical intervention was needed. Once her breathing improved, she was extubated and transferred to the medical floor. She was noted to have low CD4 counts on her initial blood work. HIV was negative. A repeat CD4 has improved now up to 956, which is normal. Her rheumatoid factor was also elevated at 23.9. Informed the patient, which daughter states that she will follow up with PCP for further workup. Today, her creatinine has improved from her initial of 1.24, decreased Lasix and today is 1.11. She is breathing better, O2 sats are over 90% on room air. Physical therapy has worked with the patient and deemed safe for discharge. She is afebrile. Vital signs are stable. We will discharge home. PHYSICAL EXAMINATION: GENERAL: No acute distress. Ambulating with no shortness of breath. NECK: Supple. LUNGS: Clear to auscultation with decreased breath sounds in the lower lobes. CARDIOVASCULAR: Normal rate and rhythm. ABDOMEN: Soft and nontender. EXTREMITIES: Active ROM. No swelling noted. NEUROLOGIC: Alert, awake, and oriented x3. SKIN: Intact and no gross abnormality noted. CONDITION AT DISCHARGE: Improved and stable. DISCHARGE MEDICATIONS: See medication reconciliation list. FOLLOWUP CARE: Follow up with Dr. Mandy Gates, who is her PCP at [facility] in 1 to 2 weeks. She is also advised to follow up with [facility] in 1 to 2 weeks. Dictated by Whitney Muir, ANP MD ALHAJI Toure/MODL /[id number] cc: MD Everton Wilkins
== END 2019-02-01 13:30 | disposition home or self-care (01) | DRG 853 ==
LOC: ER 18:21 → ERHOLD 21:49 → IMCU 01-24 02:35 → ICU 01-24 08:39 → IMCU 01-27 22:45 → MED/SURG 01-30 17:36 → IMCU 01-30 17:37
PROVIDERS: ADMIT Internal Medicine; ATTEND Internal Medicine
PROC: 5A1945Z Respiratory Ventilation, 24-96 Consecutive Hours (ICD-10-PCS; principal; 2019-01-23)
PROC: 0B9H8ZX Drainage of Lung Lingula, Via Natural or Artificial Opening Endoscopic, Diagnostic (ICD-10-PCS; 2019-01-25)
PROC: 0BJ08ZZ Inspection of Tracheobronchial Tree, Via Natural or Artificial Opening Endoscopic (ICD-10-PCS; 2019-01-25)
DX: A41.9 Sepsis, unspecified organism (principal); J18.9 Pneumonia, unspecified organism; J96.00 Acute respiratory failure, unspecified whether with hypoxia or hypercapnia; K56.7 Ileus, unspecified; N17.9 Acute kidney failure, unspecified; E03.9 Hypothyroidism, unspecified; E78.00 Pure hypercholesterolemia, unspecified; D50.9 Iron deficiency anemia, unspecified; E87.6 Hypokalemia; E11.22 Type 2 diabetes mellitus with diabetic chronic kidney disease; I12.9 Hypertensive chronic kidney disease with stage 1 through stage 4 chronic kidney disease, or unspecified chronic kidney disease; N18.3 Chronic kidney disease, stage 3 (moderate)
CPT/HCPCS: 31500; 31622; 36415; 36600; 71045; 71260; 74018; 80048; 80053; 81001; 82550; 82553; 82805; 82948; 83605; 83735; 83880; 84100; 84484; 85025; 85610; 85730; 86021; 86039; 86361; 86431; 87040; 87070; 87102; 87116; 87205; 87206; 87335; 87390; 87449; 88112; 88305; 88312; 89051; 93005; 94002; 94003; 94640; 94660; 94664; 96372; 97139; 99284; G0433; G0435; J0330; J0360; J1650; J1815; J1817; J1940; J1956; J2543; J3370; J3475; J3480; J7030; J7070; Q9967

== ENCOUNTER 2021-02-15 12:38 | Emergency (ER) | payer MEDICARE, OTHER ==
[~2021-02-15] VITALS: Ht 162.6 cm; Wt 97.5 kg
[~2021-02-15 12:38] MED LIST changes: -ETOMIDATE 40 MG/ 20ML VIAL IV ONE; +LEVAQUIN500 MG PO; +LOPRESSOR25 MG PO; -SUCCINYLCHOLINE CHLORIDE 20 MG/ML 10ML VIAL ONE
[2021-02-15] MEDS ORDERED: EPINEPHRINE 2.25% INH NEBU SOL 0.5 ML VIAL INH STA (15:31)
[2021-02-15] MEDS ORDERED: EPINEPHRINE 2.25% INH NEBU SOL 0.5 ML VIAL ONE (15:40)
[2021-02-15] MEDS ORDERED: VALSARTAN320 MG (15:54)
[2021-02-15] MEDS ORDERED: CARVEDILOL12.5 MG PO (15:54)
[2021-02-15] MEDS ORDERED: HYDROCHLOROTH12.5 MG (15:54)
[2021-02-15] MEDS ORDERED: FUROSEMIDE40 MG PO (15:54)
[2021-02-15] MEDS ORDERED: ALBUTEROL/IPRATROPIUM 3 ML NEB NEB ONE ×2 (16:15→17:45)
[2021-02-15] MEDS ORDERED: ALBUTEROL/IPRATROPIUM 3 ML NEB ONE (16:55)
[2021-02-15] MEDS ORDERED: ACETAMINOPHEN 325 MG TAB ONE (17:26)
[2021-02-15] MEDS ORDERED: ACETAMINOPHEN 325 MG TAB PO ONE (17:45)
[2021-02-15] MEDS ORDERED: PREDNISONE20 MG PO ×2 (19:35→19:47)
[2021-02-15] MEDS ORDERED: ALBUTEROL2.5 MG/3 M INH ×2 (19:38→19:47)
[2021-02-15] MEDS ORDERED: NYSTATIN100000 UNI PO (19:55)
== END 2021-02-15 20:21 | disposition home or self-care (01) ==
LOC: FSED 15:29
DX: J98.01 Acute bronchospasm (principal); E87.1 Hypo-osmolality and hyponatremia; B37.0 Candidal stomatitis; I50.9 Heart failure, unspecified; E11.65 Type 2 diabetes mellitus with hyperglycemia; I10 Essential (primary) hypertension; R00.1 Bradycardia, unspecified; E03.9 Hypothyroidism, unspecified; R94.31 Abnormal electrocardiogram [ECG] [EKG]
CPT/HCPCS: 70360; 71046; 80053; 81003; 82553; 83880; 84484; 85025; 93005; 99284